=== PATIENT | female | born 1955 | race Caucasian/White ===

== ENCOUNTER → 2016-08-04 | Outpatient (CLI) | payer BC ==
[~2016-08-04] MED LIST: CALC-354 PO; CALCTAB5 PO; CARB25TA16 PO; CHOL100010 PO; FSM70 PO; GABA-774 PO; HORIZANT PO; LVQ500 PO; SYN88 PO; TRAZPOW
--- NOTE | 2016-08-05 08:02 | MAMMOGRAPHY REPORT ---
BILATERAL DIGITAL SCREENING MAMMOGRAM TOMOSYNTHESIS WITH CAD: 08/04/2016 CLINICAL HISTORY: Asymptomatic. Personal history of breast cancer. TECHNIQUE: Breast tomosynthesis in addition to standard 2D mammography was performed. Current study was also evaluated with a Computer Aided Detection (CAD) system. COMPARISON: Comparison is made to exams dated: 07/31/2015 mammogram, 07/26/2014 mammogram, 06/07/2013 yung mogram, 11/29/2012 mammogram, 05/21/2012 ultrasound, and 05/21/2012 mammogram - [facility] nter. BREAST COMPOSITION: The tissue of both breasts is heterogeneously dense, which may obscure small mas ses. FINDINGS: There are stable postsurgical changes in the right breast, with evidence of prior lumpectom y in the upper inner posterior aspect of the breast. There are a few benign round calcifications in the right breast. Diffuse bilateral punctate microcalcifications in mild vascular calcification. No new suspicious mass, architectural distortion or cluster of microcalcifications is seen. IMPRESSION: ACR BI-RADS CATEGORY 1: NEGATIVE There is no mammographic evidence of malignancy. A 1 year screening mammogram is recommended. The pa tient will receive written notification of the results. Approximately 10% of breast cancers are not detected with mammography. A negative mammographic report should not delay biopsy if a clinically suggestive mass is present. Fabienne Prescott M.D. ay/:08/04/2016 16:49:05 Language Therapist: Elana Jensen, [facility] letter sent: Normal 1/2 BI-RADS Code: ACR BI-RADS Category 1: Negative
== END ==
LOC: C.MAMM 07:25
PROVIDERS: ATTEND Nurse Practitioner
DX: Z12.31 Encounter for screening mammogram for malignant neoplasm of breast (principal)

== ENCOUNTER 2016-12-03 15:22 | Inpatient (IN) | payer BC ==
[~2016-12-03] VITALS: Ht 167.6 cm; Wt 61.6 kg
[~2016-12-03 15:22] MED LIST changes: -CALC-354 PO; -GABA-774 PO; -HORIZANT PO; -LVQ500 PO
[2016-12-03] MEDS ORDERED: KETOROLAC TROMETHAMINE 30 MG/ML VIAL IV STA (15:44)
[2016-12-03] MEDS ORDERED: ACETAMINOPHEN 500 MG TAB PO STA (15:44)
[2016-12-03] MEDS ORDERED: LEVAQUIN 750MG / 150ML D5W IV STA (15:44)
[2016-12-03] MEDS ORDERED: HORIZANT PO (15:45)
[2016-12-03] MEDS ORDERED: CALC-354 PO (15:45)
[2016-12-03] MEDS ORDERED: SYN88 PO (15:45)
--- NOTE | 2016-12-03 16:02 | EMERGENCY ROOM VISIT NOTE ---
History Report prepared by Marcela: Erin Feliciano Under the Supervision of: Dr. Austin Cox M.D. First contact with patient: 15:40 Chief Complaint: ILLNESS Stated Complaint: I History of Present Illness The patient is a 60 year old female who presents to the Emergency Room with complaints of a constant illness for the past 5 days. The patient developed a fever and chills 5 days ago. Yesterday afternoon she started feeling better, but her fever and chills returned today. This morning she went to her PCP's office for evaluation. She had a fever at that time. Her PCP sent her to same- day surgery at the hospital for fluids. The patient received 2L of fluids and still had a fever and did not feel better, so she was sent to the ED for further evaluation. The patient reports a slight cough. She was feeling dizzy two days ago and fell because of this dizziness. She did not lose consciousness. She hit her lower back and her head at that time. She has been having some lower back pain since this episode. She has seen her PCP for these symptoms. The patient denies headache, sore throat, rhinorrhea, nausea, vomiting , diarrhea, abdominal pain, and urinary symptoms. She denies any sick contacts or recent tick bites. She also denies any recent changes to her medications. She is not currently under treatment for any medical problems. The patient reports some generalized soreness which she attributes to laying around for the past few days. Source of History: patient Onset: 5 days ago Position: other (global) Quality: other (illness) Timing: constant Associated Symptoms: + fevers, + chills, + back pain, No LOC, No sorethroat , No nausea, No vomiting, No abdominal pain, No diarrhea, No urinary symptoms Review of Systems See HPI for pertinent positives & negatives. A total of 10 systems reviewed and were otherwise negative. Past Medical & Surgical Medical Problems: (1) Carcinoma of breast (2) Hypothyroidism, unspecified (3) Lumbago Family History Diabetes mellitus Social History Smoking Status: Former Smoker Marital Status: Housing Status: lives with significant other Current/Historical Medications Scheduled Calcium Carbonate-Cholecalcife (Caltrate 600+D), 1 TAB PO DAILY Levodopa/Carbidopa (Sinemet Cr 25MG/100MG), 1 TAB PO DAILY Levothyroxine Sodium (Synthroid), 88 MCG PO DAILY [horizant ER], 600 MG PO DAILY@1700 Allergies Coded Allergies: Penicillins (Verified Allergy, Unknown, 12/03/16) Physical Exam Vital Signs Date Time Temp Pulse Resp B/P (MAP) Pulse Ox O2 Delivery O2 Flow Rate FiO2 12/03/16 17:02 37.6 87 18 80/39 96 Room Air 12/03/16 15:35 39.6 83 18 112/57 99 Room Air Physical Exam GENERAL: Patient is in no acute distress. HEENT: No acute trauma, normocephalic atraumatic, mucous membranes dry, no nasal congestion, no scleral icterus. No throat erythema or exudate. NECK: No stridor, no adenopathy, no meningismus, trachea is midline. LUNGS: Clear to auscultation bilaterally, no wheeze, no rhonchi, breath sounds equal. HEART: Without murmurs gallops or rubs, regular rate and rhythm. ABDOMEN: Soft, nontender, bowel sounds positive, no hernias, no peritonitis. EXTREMITIES: No cyanosis or edema, full range of motion of all the joints without pain or difficulty, no signs for acute trauma. NEUROLOGIC: Oriented x 3, no acute motor or sensory deficits, no focal weakness. SKIN: No rash, no jaundice, no diaphoresis. Medical Decision & Procedures ER Provider Diagnostic Interpretation: Radiology results as stated below per my review and radiologist interpretation: CHEST ONE VIEW PORTABLE CLINICAL HISTORY: Sepsis COMPARISON STUDY: No previous studies for comparison. FINDINGS: The cardiac and mediastinal contours are normal. There is no evidence of focal pulmonary consolidation. There is no evidence of failure. No pleural effusions are visualized.[ IMPRESSION: No active disease in the chest. Electronically signed by: Doug Rey M.D. 12/03/2016 4:05 PM Dictated Date/Time: 12/03/2016 4:05 PM Laboratory Results 12/03/16 16:00 Red Blood Count 4.18, Mean Corpuscular Volume 87.1, Mean Corpuscular Hemoglobin 30.1, Mean Corpuscular Hemoglobin Concent 34.6, Mean Platelet Volume 10.2, Neutrophils (%) (Auto) 81.3, Lymphocytes (%) (Auto) 9.8, Monocytes (%) (Auto) 8.1, Eosinophils (%) (Auto) 0.0, Basophils (%) (Auto) 0.1, Neutrophils # (Auto) 5.91, Lymphocytes # (Auto) 0.71, Monocytes # (Auto) 0.59, Eosinophils # (Auto) 0.00, Basophils # (Auto) 0.01 12/03/16 16:00 Test 12/03/16 16:00 12/03/16 16:16 12/03/16 17:46 White Blood Count 7.27 K/uL (4.8-10.8) Red Blood Count 4.18 M/uL (4.2-5.4) Hemoglobin 12.6 g/dL (12.0-16.0) Hematocrit 36.4 % (37-47) Mean Corpuscular Volume 87.1 fL (80-100) Mean Corpuscular Hemoglobin 30.1 pg (25-34) Mean Corpuscular Hemoglobin Concent 34.6 g/dl (32-36) Platelet Count 152 K/uL (130-400) Mean Platelet Volume 10.2 fL (7.4-10.4) Neutrophils (%) (Auto) 81.3 % Lymphocytes (%) (Auto) 9.8 % Monocytes (%) (Auto) 8.1 % Eosinophils (%) (Auto) 0.0 % Basophils (%) (Auto) 0.1 % Neutrophils # (Auto) 5.91 K/uL (1.4-6.5) Lymphocytes # (Auto) 0.71 K/uL (1.2-3.4) Monocytes # (Auto) 0.59 K/uL (0.11-0.59) Eosinophils # (Auto) 0.00 K/uL (0-0.5) Basophils # (Auto) 0.01 K/uL (0-0.2) RDW Standard Deviation 41.1 fL (36.4-46.3) RDW Coefficient of Variation 12.7 % (11.5-14.5) Immature Granulocyte % (Auto) 0.7 % Immature Granulocyte # (Auto) 0.05 K/uL (0.00-0.02) Prothrombin Time 10.6 SECONDS (9.0-12.0) Prothromb Time International Ratio 1.0 (0.9-1.1) Activated Partial Thromboplast Time 27.9 SECONDS (21.0-31.0) Partial Thromboplastin Ratio 1.1 Anion Gap 9.0 mmol/L (3-11) Est Creatinine Clear Calc Drug Dose 61.5 ml/min Estimated GFR () 78.5 Estimated GFR (Non- 67.7 BUN/Creatinine Ratio 17.7 (10-20) Calcium Level 7.7 mg/dl (8.5-10.1) Magnesium Level 2.3 mg/dl (1.8-2.4) Total Bilirubin 0.5 mg/dl (0.2-1) Aspartate Amino Transf (AST/SGOT) 39 U/L (15-37) Alanine Aminotransferase (ALT/SGPT) 45 U/L (12-78) Alkaline Phosphatase 77 U/L (45-117) Total Protein 6.7 gm/dl (6.4-8.2) Albumin 2.6 gm/dl (3.4-5.0) Globulin 4.1 gm/dl (2.5-4.0) Albumin/Globulin Ratio 0.6 (0.9-2) Thyroid Stimulating Hormone (TSH) 0.184 uIu/ml (0.300-4.500) Lyme Disease IgG Antibody NEG (NEG) Lyme Disease IgM Antibody NEG (NEG) Bedside Lactic Acid Venous 1.73 mmol/L (0.90-1.70) Laboratory results reviewed by me. Medications Administered Medications (Trade) Dose Ordered Sig/Cherelle Route Start Time Stop Time Status Last Admin Dose Admin Acetaminophen (Tylenol Tab) 1,000 mg NOW STAT PO 12/03/16 15:44 12/03/16 15:48 DC 12/03/16 15:59 1,000 MG Ketorolac Tromethamine (Toradol Inj) 30 mg NOW STAT IV 12/03/16 15:44 12/03/16 15:48 DC 12/03/16 16:36 30 MG Levofloxacin (Levaquin / D5W) 750 mg NOW STAT IV 12/03/16 15:44 12/03/16 15:48 DC 12/03/16 16:36 750 MG Sodium Chloride 500 ml @ 999 mls/hr Q31M STAT IV 12/03/16 16:42 12/03/16 17:12 DC 12/03/16 16:58 999 MLS/HR Potassium Chloride (Klor-Con M10) 40 meq NOW STAT PO 12/03/16 16:47 12/03/16 16:48 DC 12/03/16 17:01 40 MEQ ED Course 1540: The patient was evaluated in room C1B. A complete history and physical exam was performed. 1544: Levofloxacin 750 mg IV, Toradol 30 mg IV, Tylenol 1000 mg PO 1642: NSS 500 ml @ 999 mls/hr IV 1647: Klor-Con M10 40 meq PO Medical Decision Differential diagnoses includes UTI, sepsis, bacteremia, dehydration, electrolyte imbalance, Lyme disease, pneumonia, viral illness. There is no leukocytosis or concerning anemia. No kidney failure. Potassium slightly low. No evidence for hepatitis. Thyroid testing suggests the use of thyroid medication. Urine dip was equivocal for infection, urinalysis is pending. Blood cultures are pending. Lactic acid level was not significantly elevated making severe sepsis less likely. Chest film did not show pneumonia. Lyme disease testing was negative. On exam, there was no evidence for cellulitis. The patient received IV saline, she was given IV Toradol and oral Tylenol. She was given IV Levaquin as empiric antibiotic coverage. The patient was given oral potassium. The patient presents with a fever, she has had body aching. She did have a fall at home secondary to dizziness. Here, her blood pressure is somewhat low. Given the fever, given the dehydration, given the lack of improvement with treatment, given the hypotension, admission/observation was felt warranted. The cause for the fever is unclear. Certainly, viral illness is possible, bacteremia is possible. I did speak with case management, I talked with the patient. The on-call hospitalist was consulted. Medication Reconcilliation Current Medication List: was personally reviewed by me Blood Pressure Screening Patient's blood pressure: Low blood pressure Impression Primary Impression: Fever Additional Impressions: Dehydration Hypotension Scribe Attestation The scribe's documentation has been prepared under my direction and personally reviewed by me in its entirety. I confirm that the note above accurately reflects all work, treatment, procedures, and medical decision making performed by me. Departure Information Dispostion Being Evaluated By Hospitalist Referrals Princess [email or web address] (PCP) Patient Instructions My [facility] Problem Qualifiers
--- NOTE | 2016-12-03 16:07 | DIAGNOSTIC IMAGING REPORT ---
CHEST ONE VIEW PORTABLE CLINICAL HISTORY: Sepsis COMPARISON STUDY: No previous studies for comparison. FINDINGS: The cardiac and mediastinal contours are normal. There is no evidence of focal pulmonary consolidation. There is no evidence of failure. No pleural effusions are visualized.[ IMPRESSION: No active disease in the chest. Electronically signed by: Doug Rey M.D. 12/03/2016 4:05 PM Dictated Date/Time: 12/03/2016 4:05 PM
[2016-12-03 16:23] LABS: BASO % 0.1 %; BASO ABS # 0.01 K/uL (0-0.2); COMPLETE YES; HEMATOCRIT 36.4 % (37-47); IG% 0.7 %; LYMPH % 9.8 %; LYMPH ABS # 0.71 K/uL (1.2-3.4); MEAN CELL VOLUME 87.1 fL (80-100); MEAN CORPUSCULAR HEMOGLOBIN 30.1 pg (25-34); MEAN CORPUSCULAR HGB CONC 34.6 g/dl (32-36); MEAN PLATELET VOLUME 10.2 fL (7.4-10.4); MONO % 8.1 %; NEUT % 81.3 %; PLATELET COUNT 152 K/uL (130-400); RED BLOOD COUNT 4.18 M/uL (4.2-5.4); WHITE BLOOD COUNT 7.27 K/uL (4.8-10.8)
[2016-12-03 16:39] LABS: PARTIAL THROMBOPLASTIN RATIO 1.1; PROTHROMBIN TIME (PATIENT) 10.6 SECONDS (9.0-12.0)
[2016-12-03] MEDS ORDERED: SODIUM CHLORIDE 0.9% 500ML 500 ML IV STA (16:42)
[2016-12-03 16:43] LABS: BUN/CREATININE RATIO 17.7 (10-20); CALCIUM 7.7 mg/dl (8.5-10.1); CREATININE 0.93 mg/dl (0.60-1.20); MAGNESIUM 2.3 mg/dl (1.8-2.4)
[2016-12-03] MEDS ORDERED: POTASSIUM CHLORIDE 10 MEQ TABCR PO STA (16:47)
[2016-12-03 16:54] LABS: ALB/GLOB RATIO 0.6 (0.9-2); THYROID STIMULATING HORMONE 0.184 uIu/ml (0.300-4.500)
[2016-12-03 18:12] LABS: URINE APPEARANCE CLEAR (CLEAR); URINE BILIRUBIN NEG (NEG); URINE COLOR YELLOW; URINE EPITHELIAL CELL AUTO 20-30 /lpf (0-5); URINE NITRITE NEG (NEG); URINE SPECIFIC GRAVITY 1.017 (1.000-1.030); UROBILINOGEN NEG (NEG); ZZUR CULT IF INDIC CLEAN CATCH YES
[2016-12-03 18:13] LABS: LYME DISEASE AB IGG NEG (NEG); LYME DISEASE AB IGM NEG (NEG)
[2016-12-03] MEDS ORDERED: ONDANSETRON INJ 2 MG/ML 2 ML VIAL IV PRN (18:45)
[2016-12-03] MEDS ORDERED: ALUMINUM/MAGNESIUM/SIMETH (MAALOX MAX) 30 ML UDC PO PRN (18:45)
[2016-12-03] MEDS ORDERED: MAGNESIUM HYDROXIDE SUSP 30 ML UDC PO PRN (18:45)
[2016-12-03 18:51] LABS: MANUAL MICROSCOPIC REQUIRED? NO; REVIEW REQ? NO
--- NOTE | 2016-12-03 18:58 | History and Physical ---
History & Physical Date & Time of Service: Dec 03, 2016 at 18:41 Chief Complaint: I Primary Care Physician: Susan. Herzog CRNP History of Present Illness Source: patient, family ( at bedside), clinic records, hospital records Patient is a pleasant 60 y/o female, with PMHx of R breast cancer s/p lumpectomy , RLS, and hypothyroidism, who presented to the ED because of illness since 11/28. Patient admits to body aches, decreased appetite, and a headache. She went to her PCP today who sent her to same day surgery here at the hospital for IVF due to dehydration. While here, she started to develop fever/chills and came to the ED. She notes her stomach is a bit upset, but attributes it to the potassium supplement given in ED. She has not taken any of her medications since Thursday due to feeling ill. She complains of mild lumbar pain secondary to a fall occurring 2 days ago due to dizziness. She admits to a non productive cough. Per , he was ill a few days ago, but has recovered. Patient denies any sweats, lightheadedness, vision changes, CP, palpitations, edema, SOB , wheezing, nausea, vomiting, diarrhea, urinary symptoms, melena, numbness/ tingling, weakness, anxiety/depression, active bleeding, or new skin discoloration/changes. Past Medical/Surgical History Medical Problems: R breast cancer s/p lumpectomy RLS hypothyroidism Family History Diabetes mellitus Social History Smoking Status: Former Smoker Smokeless Tobacco Use: No Marital Status: Housing status: lives with family Immunizations History of Influenza Vaccine: Yes Influenza Vaccine Date: Dec 03, 2011 History of Tetanus Vaccine?: Yes Tetanus Immunization Date: Dec 24, 2011 History of Pneumococcal: No History of Hepatitis B Vaccine: No Multi-Drug Resistant Organisms History of MDRO: No Allergies Coded Allergies: Penicillins (Verified Allergy, Mild, RASH, 12/04/16) Home Medications Scheduled Calcium Carbonate-Cholecalcife (Caltrate 600+D), 1 TAB PO DAILY Gabapentin Enacarbil (Horizant), 600 MG PO DAILY@1700 Levodopa/Carbidopa (Sinemet Cr 25MG/100MG), 1 TAB PO HS Levothyroxine Sodium (Synthroid), 88 MCG PO DAILY Physical Exam Vital Signs Date Time Temp Pulse Resp B/P (MAP) Pulse Ox O2 Delivery O2 Flow Rate FiO2 12/03/16 17:02 37.6 87 18 80/39 96 Room Air 12/03/16 15:35 39.6 83 18 112/57 99 Room Air General Appearance: no apparent distress Head: normocephalic, atraumatic Eyes: normal inspection, PERRL ENT: hearing grossly normal Neck: supple Respiratory/Chest: lungs clear, normal breath sounds, no respiratory distress, no accessory muscle use Cardiovascular: regular rate, rhythm Abdomen/GI: normal bowel sounds, non tender, soft Back: normal inspection Extremities/Musculoskelatal: no calf tenderness, no pedal edema Neurologic/Psych: alert, normal mood/affect, oriented x 3 Skin: normal color, warm/dry, no rash Diagnostics Laboratory Results Results Past 24 Hours Test 12/03/16 16:00 12/03/16 16:16 12/03/16 17:46 Range/Units White Blood Count 7.27 4.8-10.8 K/uL Red Blood Count 4.18 4.2-5.4 M/uL Hemoglobin 12.6 12.0-16.0 g/dL Hematocrit 36.4 37-47 % Mean Corpuscular Volume 87.1 80-100 fL Mean Corpuscular Hemoglobin 30.1 25-34 pg Mean Corpuscular Hemoglobin Concent 34.6 32-36 g/dl Platelet Count 152 130-400 K/uL Mean Platelet Volume 10.2 7.4-10.4 fL Neutrophils (%) (Auto) 81.3 % Lymphocytes (%) (Auto) 9.8 % Monocytes (%) (Auto) 8.1 % Eosinophils (%) (Auto) 0.0 % Basophils (%) (Auto) 0.1 % Neutrophils # (Auto) 5.91 1.4-6.5 K/uL Lymphocytes # (Auto) 0.71 1.2-3.4 K/uL Monocytes # (Auto) 0.59 0.11-0.59 K/uL Eosinophils # (Auto) 0.00 0-0.5 K/uL Basophils # (Auto) 0.01 0-0.2 K/uL RDW Standard Deviation 41.1 36.4-46.3 fL RDW Coefficient of Variation 12.7 11.5-14.5 % Immature Granulocyte % (Auto) 0.7 % Immature Granulocyte # (Auto) 0.05 0.00-0.02 K/uL Prothrombin Time 10.6 9.0-12.0 SECONDS Prothromb Time International Ratio 1.0 0.9-1.1 Activated Partial Thromboplast Time 27.9 21.0-31.0 SECONDS Partial Thromboplastin Ratio 1.1 Sodium Level 135 136-145 mmol/L Potassium Level 3.0 3.5-5.1 mmol/L Chloride Level 100 98-107 mmol/L Carbon Dioxide Level 26 21-32 mmol/L Anion Gap 9.0 3-11 mmol/L Blood Urea Nitrogen 16 7-18 mg/dl Creatinine 0.93 0.60-1.20 mg/dl Est Creatinine Clear Calc Drug Dose 61.5 ml/min Estimated GFR () 78.5 Estimated GFR (Non- 67.7 BUN/Creatinine Ratio 17.7 10-20 Random Glucose 93 70-99 mg/dl Calcium Level 7.7 8.5-10.1 mg/dl Magnesium Level 2.3 1.8-2.4 mg/dl Total Bilirubin 0.5 0.2-1 mg/dl Aspartate Amino Transf (AST/SGOT) 39 15-37 U/L Alanine Aminotransferase (ALT/SGPT) 45 12-78 U/L Alkaline Phosphatase 77 45-117 U/L Total Protein 6.7 6.4-8.2 gm/dl Albumin 2.6 3.4-5.0 gm/dl Globulin 4.1 2.5-4.0 gm/dl Albumin/Globulin Ratio 0.6 0.9-2 Thyroid Stimulating Hormone (TSH) 0.184 0.300-4.500 uIu/ml Free Thyroxine 0.90 0.80-1.60 ng/dl Lyme Disease IgG Antibody NEG NEG Lyme Disease IgM Antibody NEG NEG Bedside Lactic Acid Venous 1.73 0.90-1.70 mmol/L Microbiology Results 12/03/16 Blood Culture, Received Pending 12/03/16 Blood Culture, Received Pending Diagnostic Radiology [~ rep ct add3]] CHEST ONE VIEW PORTABLE CLINICAL HISTORY: Sepsis COMPARISON STUDY: No previous studies for comparison. FINDINGS: The cardiac and mediastinal contours are normal. There is no evidence of focal pulmonary consolidation. There is no evidence of failure. No pleural effusions are visualized.[ IMPRESSION: No active disease in the chest. Electronically signed by: Doug Rey M.D. 12/03/2016 4:05 PM Dictated Date/Time: 12/03/2016 4:05 PM The status of this report is Signed. Draft = Not yet reviewed or approved by Radiologist. Signed = Reviewed and approved by Radiologist. Impression Assessment and Plan Patient is a pleasant 60 y/o female, with PMHx of R breast cancer s/p lumpectomy , RLS, and hypothyroidism, who presented to the ED because of illness since 11/28. Illness w/ hypotension and fever, ?secondary to viral illness vs infectious: - Admit to med/surg - Hypotension: Received IV bolus x2, continue IVF @ 125 ml/hr + IV Albumin x1 dose - Tylenol PRN for pain or fever - IV Levaquin given in ED; will not continue antibiotics at this time- no clear s/s on infection - UA/UCx pending - BCx pending - Influenza swab pending - Lyme screen negative - CXR- negative for acute findings - Mildly elevated lactic acid- will repeat q6 hrs - Follow CBC and PRP Hypokalemia: Replaced w/ 40 mEq KCL supplement in ED; IVF + KCL Hypothyroidism: Continue Synthroid RLS: Continue Sinemet and Horizant GI prophylaxis: Protonix DVT prophylaxis: Lovenox SQ daily Code Status: LEVEL I, FULL Dispo: From home, lives w/ - no discharge needs anticipated Attending Addendum: I have physically seen and examined this patient, have directed the physician assistants medical activities, and agree with the H&P as noted above with the following exceptions as noted. The patient is awake, alert and oriented 3, well-developed and well-nourished , normocephalic and atraumatic, lying in bed and in no acute distress. HEENT--PERRL, EOMI, mucous membranes and oropharynx dry. Neck--supple, no JVD or bruits, thyroid normal, trachea midline, no adenopathy. Heart--normal S1 and S2, no extra beats, no murmurs, rubs or gallops. Lungs--clear bilaterally with good air movement, no respiratory distress, no accessory muscle use. Abdomen--normal bowel sounds and soft, nontender and nondistended, no hernias or masses, no organomegaly. Extremities--no cyanosis, clubbing or edema. There are good distal pulses b/l. Dermatologic--normal skin turgor, normal color, warm and dry, no abnormal lymph nodes, no rash. Neurologic--cranial nerves II through XII grossly intact. Rheumatologic--normal range of motion, nontender, muscles and joints. Psychiatric--normal affect. Assessment and Plan: Febrile illness/hypotension responded to IV fluids-- Continue IV fluids at 125 ML's per hour. Albumin 25 g IV 1 Levaquin IV given in the ED. Symptoms more suggestive of a viral process but will follow urinalysis, urine culture and blood cultures. Hypokalemia-- Replaced both orally and IV. Hypothyroidism-- Continue Synthroid. RLS/Parkinson-- Continue Sinemet and horizant GERD-- Continue Protonix. Level of Care Med/Surg Advanced Directives Existing Advance Directive: No Existing Living Will: No Existing Power of Multi Operation Forming Machine Setter: No Resuscitation Status FULL RESUSCITATION VTE Prophylaxis VTE Risk Assessment Done? Y/N: Yes Risk Level: Moderate Given or contraindicated: Enoxaparin (Lovenox)SQ, T.E.D. Stockings, SCD's Social Service Consult None Apply
[2016-12-03] MEDS ORDERED: ALBUMIN HUMAN 25% 12.5 GM/50 ML VIAL IV ONE ×2 (19:00→21:15)
[2016-12-03] MEDS ORDERED: POLYETHYLENE (MIRALAX) 17 GM PACK PO PRN (19:15)
[2016-12-03] MEDS ORDERED: GABA-774 PO (19:18)
[2016-12-03 20:33] VITALS: BP 94/58; PULSE 64; TEMP 36.5; O2SAT 98; Ht 167.6 cm; Wt 61.6 kg
[2016-12-03] MEDS: NSS + 20MEQ KCL 1000ML 1,000 ML IV SCH (20:59)
[2016-12-03 21:31] VITALS: BP 89/53; PULSE 59; TEMP 36.6; O2SAT 98
[2016-12-03] MEDS: ENOXAPARIN 40 MG/0.4 ML SYR SQ SCH (22:00)
[2016-12-03 23:28] VITALS: BP 91/51; PULSE 60; O2SAT 97
[2016-12-04] MEDS ORDERED: NURSING VERBAL MED ORDER ONE ×3 (00:45→10:30)
[2016-12-04 00:46] VITALS: BP 84/55; PULSE 93; TEMP 36.7; O2SAT 95
[2016-12-04] MEDS ORDERED: ZOLPIDEM TARTRATE 5 MG TAB PO ONE (01:30)
[2016-12-04] MEDS: NSS + 20MEQ KCL 1000ML 1,000 ML IV SCH ×3 (05:41→21:27)
[2016-12-04] MEDS: LEVOTHYROXINE 88 MCG TAB PO SCH (06:22)
[2016-12-04 06:47] LABS: HEMATOCRIT 30.8 % (37-47); MEAN CORPUSCULAR HEMOGLOBIN 29.6 pg (25-34); MEAN CORPUSCULAR HGB CONC 34.4 g/dl (32-36); MEAN PLATELET VOLUME 9.4 fL (7.4-10.4); PLATELET COUNT 149 K/uL (130-400); RED BLOOD COUNT 3.58 M/uL (4.2-5.4); WHITE BLOOD COUNT 5.81 K/uL (4.8-10.8)
[2016-12-04 07:23] LABS: CREATININE 0.8 mg/dl (0.60-1.20)
[2016-12-04 07:24] LABS: BUN/CREATININE RATIO 12.7 (10-20); CALCIUM 7.4 mg/dl (8.5-10.1); POTASSIUM 3.7 mmol/L (3.5-5.1)
[2016-12-04] MEDS: ACETAMINOPHEN 325 MG TAB PO PRN ×2 (07:37→23:24)
[2016-12-04 07:50] VITALS: BP 95/59; PULSE 91; TEMP 39.1; O2SAT 94
[2016-12-04] MEDS ORDERED: CARBIDOPA/LEVODOPA 25/100MG EXT REL TAB PO SCH (08:00)
[2016-12-04] MEDS ORDERED: PIPERACILL/TAZOBAC CONSULT ACTIVE PRN (08:30)
[2016-12-04] MEDS ORDERED: VANCOMYCIN CONSULT ACTIVE PRN (08:30)
[2016-12-04] MEDS ORDERED: PIPERACILL/TAZOBAC IV 3.375 GM in DEXTROSE 5% 100ML IV ONE (09:00)
--- NOTE | 2016-12-04 09:09 | Pharmacy Progress Note ---
Pharmacy Abx Dose Short Note Date of Service Dec 04, 2016. Assessment & Plan Pt is a 60yo F p/w fever & concurrent hypotension. Spoke w/ nursing re: PCN allergy. Per patient it was a mild rash on her feet. There is little concern for anaphylaxis or an IgE mediated response. Pt's renal fxn looks to be close to her baseline: t1/2=11hrs, ke=0.0642, Vd=0.7. No leukocytosis. Fever of 39.1. qSOFA: Sys BP is <100mmHg, No AMS, Normopneic. Pt doesnt have a h/o MDRO. BCx2, UC, and MRSA nasal swab all pending. Vanco: * Set to receive Vanco 1500mg(24mg/kg) x1 to achieve a peak of about 35mcg/mL * Then Vanco 1000mg(16mg/kg) q12 starting at 1600 on 12/04/16 * Goal trough until c/s's result is 15-20mcg/mL * Trough ordered for 12/06/16 @0330 prior to the 4th maintenance dose Zosyn: * Will receive Zosyn 3.375g x1 30min infsn * Then EI Zosyn 3.375g q8, appropriate for eCrCl>20cc/min and clinical status Pharmacy will continue to follow and will adjust dose/frequency as necessary. Thank you.
[2016-12-04] MEDS: PANTOprazole SOD 40 MG TAB PO SCH (09:12)
[2016-12-04] MEDS ORDERED: VANCOMYCIN INJ 1,500 MG in SODIUM CHLORIDE 0.9% 500ML 500 ML IV ONE (09:30)
--- NOTE | 2016-12-04 10:09 | Progress Note ---
Subjective Date of Service: Dec 04, 2016. Subjective Pt evaluation today including: conversation w/ patient, conversation w/ family , physical exam, chart review, lab review, review of studies, review of inpatient medication list Jass spiking fever and is morning 39.1, complaining muscle ache, otherwise no any complaint, blood pressure better, no more dizziness Problem List Medical Problems: (1) Dehydration Status: Acute (2) Fever Status: Acute (3) Hypotension Status: Acute Review of Systems Constitutional: No fever, No chills, No sweats, No weight loss, No weakness, No fatigue, No problem reported Eyes: No worsening of vision, No eye pain, No redness, No discharge, No diplopia ENT: No hearing loss, No unusual epistaxis, No nasal symptoms, No sore throat, No tinnitus, No dental problems, No trouble swallowing Respiratory: No cough, No sputum, No wheezing, No shortness of breath, No dyspnea on exertion, No dyspnea at rest, No hemoptysis Cardiac: No chest pain, No orthopnea, No PND, No edema, No claudication, No palpitations Abdomen: No pain, No nausea, No vomiting, No diarrhea, No constipation Musculoskeletal: No joint pain, No muscle pain, No swelling, No calf pain Female : No dysuria, No urinary frequency, No hematuria, No incontinence, No abnormal vaginal bleeding, No vaginal discharge Neurologic: No memory loss, No paralysis, No weakness, No numbness/tingling, No vertigo, No balance problems Psychiatric: No depression symptoms, No anhedonism, No anxiety, No insomnia, No substance abuse Heme: No abnormal bleeding/bruising, No clotting problems, No swollen lymph nodes, No night sweats Endo: No fatigue, No excessive thirst, No excessive urination Skin: No rash, No itch, No new/changing skin lesions, No color change, No bleeding Objective Vital Signs Date Time Temp Pulse Resp B/P (MAP) Pulse Ox O2 Delivery O2 Flow Rate FiO2 12/04/16 07:50 39.1 91 18 95/59 (71) 94 Room Air 12/04/16 00:46 36.7 93 18 84/55 (65) 95 Room Air 12/03/16 23:59 Room Air 12/03/16 23:28 60 91/51 (64) 97 12/03/16 21:31 36.6 59 18 89/53 (65) 98 Room Air 12/03/16 20:33 36.5 64 16 94/58 98 Room Air 12/03/16 20:00 66 18 81/42 98 12/03/16 18:58 65 18 78/40 98 Room Air 12/03/16 17:02 37.6 87 18 80/39 96 Room Air 12/03/16 15:35 39.6 83 18 112/57 99 Room Air Physical Exam General Appearance: WD/WN, no apparent distress, + thin Eyes: normal inspection, PERRL, EOMI, sclerae normal ENT: normal ENT inspection, hearing grossly normal, pharynx normal Neck: supple, no adenopathy, thyroid normal, no JVD, no carotid bruits, trachea midline Respiratory/Chest: chest non-tender, lungs clear, normal breath sounds, no respiratory distress, no accessory muscle use Cardiovascular: regular rate, rhythm, no edema, no gallop, no JVD, no murmur, + friction rub (suspicious mild) Abdomen: normal bowel sounds, non tender, soft, no organomegaly, no pulsatile mass Extremities: normal range of motion, non-tender, normal inspection, no pedal edema, no calf tenderness, normal capillary refill, pelvis stable 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, no motor/sensory deficits, alert, normal mood/affect, oriented x 3 Skin: normal color, warm/dry, no rash Lymphatic: no adenopathy Laboratory Results Last 24 Hours Test 12/03/16 16:00 12/03/16 16:16 12/03/16 17:46 12/03/16 20:00 White Blood Count 7.27 K/uL Red Blood Count 4.18 M/uL Hemoglobin 12.6 g/dL Hematocrit 36.4 % Mean Corpuscular Volume 87.1 fL Mean Corpuscular Hemoglobin 30.1 pg Mean Corpuscular Hemoglobin Concent 34.6 g/dl Platelet Count 152 K/uL Mean Platelet Volume 10.2 fL Neutrophils (%) (Auto) 81.3 % Lymphocytes (%) (Auto) 9.8 % Monocytes (%) (Auto) 8.1 % Eosinophils (%) (Auto) 0.0 % Basophils (%) (Auto) 0.1 % Neutrophils # (Auto) 5.91 K/uL Lymphocytes # (Auto) 0.71 K/uL Monocytes # (Auto) 0.59 K/uL Eosinophils # (Auto) 0.00 K/uL Basophils # (Auto) 0.01 K/uL RDW Standard Deviation 41.1 fL RDW Coefficient of Variation 12.7 % Immature Granulocyte % (Auto) 0.7 % Immature Granulocyte # (Auto) 0.05 K/uL Prothrombin Time 10.6 SECONDS Prothromb Time International Ratio 1.0 Activated Partial Thromboplast Time 27.9 SECONDS Partial Thromboplastin Ratio 1.1 Sodium Level 135 mmol/L Potassium Level 3.0 mmol/L Chloride Level 100 mmol/L Carbon Dioxide Level 26 mmol/L Anion Gap 9.0 mmol/L Blood Urea Nitrogen 16 mg/dl Creatinine 0.93 mg/dl Est Creatinine Clear Calc Drug Dose 61.5 ml/min Estimated GFR () 78.5 Estimated GFR (Non- 67.7 BUN/Creatinine Ratio 17.7 Random Glucose 93 mg/dl Calcium Level 7.7 mg/dl Magnesium Level 2.3 mg/dl Total Bilirubin 0.5 mg/dl Aspartate Amino Transf (AST/SGOT) 39 U/L Alanine Aminotransferase (ALT/SGPT) 45 U/L Alkaline Phosphatase 77 U/L Total Protein 6.7 gm/dl Albumin 2.6 gm/dl Globulin 4.1 gm/dl Albumin/Globulin Ratio 0.6 Thyroid Stimulating Hormone (TSH) 0.184 uIu/ml Free Thyroxine 0.90 ng/dl Lyme Disease IgG Antibody NEG Lyme Disease IgM Antibody NEG Bedside Lactic Acid Venous 1.73 mmol/L Urine Color YELLOW Urine Appearance CLEAR Urine pH 6.0 Urine Specific [place] 1.017 Urine Protein NEG Urine Glucose (UA) NEG Urine Ketones NEG Urine Occult Blood 1+ Urine Nitrite NEG Urine Bilirubin NEG Urine Urobilinogen NEG Urine Leukocyte Esterase MODERATE Urine WBC (Auto) 10-30 /hpf Urine RBC (Auto) 0-4 /hpf Urine Hyaline Casts (Auto) 0 /lpf Urine Epithelial Cells (Auto) 20-30 /lpf Urine Bacteria (Auto) NEG Influenza Type A Antigen Neg for Influ A Influenza Type B Antigen Neg for Influ B Test 12/03/16 22:13 12/04/16 06:26 12/04/16 07:58 Lactic Acid Level 1.2 mmol/L White Blood Count 5.81 K/uL Red Blood Count 3.58 M/uL Hemoglobin 10.6 g/dL Hematocrit 30.8 % Mean Corpuscular Volume 86.0 fL Mean Corpuscular Hemoglobin 29.6 pg Mean Corpuscular Hemoglobin Concent 34.4 g/dl RDW Standard Deviation 41.0 fL RDW Coefficient of Variation 12.7 % Platelet Count 149 K/uL Mean Platelet Volume 9.4 fL Sodium Level 138 mmol/L Potassium Level 3.7 mmol/L Chloride Level 109 mmol/L Carbon Dioxide Level 21 mmol/L Anion Gap 8.0 mmol/L Blood Urea Nitrogen 10 mg/dl Creatinine 0.80 mg/dl Est Creatinine Clear Calc Drug Dose 71.7 ml/min Estimated GFR () 94.2 Estimated GFR (Non- 81.3 BUN/Creatinine Ratio 12.7 Random Glucose 91 mg/dl Calcium Level 7.4 mg/dl Erythrocyte Sedimentation Rate 31 mm/hr C-Reactive Protein 11.60 mg/dl Procalcitonin 1.37 ng/ml Assessment and Plan 60 y/o female, with PMHx of R breast cancer s/p lumpectomy, RLS, and hypothyroidism admitted for possible sepsis with fever and hypotensive Possible sepsis with fever, hypotensive, possible source of infection is UTI, Illness w/ hypotension and fever, secondary to viral illness vs infectious: After 2 L IV fluid in the emergency room, currently is continuation of IV fluid , blood pressure is stable at 97 SBP , general condition looks good, I feel she should be okay to stay in the [facility] floor Spiking fever, infectious versus virus, repeat blood culture because spiking fever, check ESR CRP and procalcitonin level suspicion mild pericardia friction , ?virus pericarditis, requests echo starting Vanco and zosyn for now because patient is possible sepsis with possible immunocompromised, she has history of breast cancer S/P lumpectomy and chemoradiation treatment years ago - Influenza swab negative - Lyme screen negative - CXR- negative for acute findings - Mildly elevated lactic acid- will repeat q6 hrs - Check total CK, cardiac enzyme and troponin, check EKG too Hypokalemia: Replaced Hypothyroidism: Continue Synthroid RLS: Continue Sinemet and Horizant The above condition stable resume home medication, GI prophylaxis: Protonix DVT prophylaxis: Lovenox SQ daily Code Status: LEVEL I, FULL Discussed with patient, and daughter about the conditions and care plan, daughter is a registered nurse working his hospital and i know her, answered all questions Continued [facility] stay due to: multiple IV medications needed Discharge planning: home, uncertain
[2016-12-04] MEDS ORDERED: LEVOFLOXACIN 750 MG TAB PO SCH (11:00)
[2016-12-04 11:08] LABS: CKMB/CK RATIO 0.7 (0-3.0)
[2016-12-04] MEDS: PIPERACILL/TAZOBAC IV 3.375 GM in DEXTROSE 5% 100ML IV SCH ×2 (13:12→21:27)
[2016-12-04 16:00] VITALS: O2SAT 94
[2016-12-04] MEDS: VANCOMYCIN INJ 1,000 MG in SODIUM CHLORIDE 0.9% 250ML 250 ML IV SCH (16:05)
[2016-12-04 16:16] VITALS: BP 93/61; PULSE 67; TEMP 36.9; O2SAT 100
[2016-12-04 16:30] VITALS: TEMP 37.1
[2016-12-04] MEDS: HORIZANT 600 MG PO SCH (16:48)
[2016-12-04] MEDS ORDERED: HORIZANT 600 MG PO SCH (17:00)
--- NOTE | 2016-12-04 17:06 | ECHOCARDIOGRAM REPORT ---
*NOTICE TO RECEIVING CONSTITUTION PARTY AGENCY This information is strictly Confidential and protected under [place] law. [place] law prohibits you from making any further disclosure of this information unless further disclosure is expressly permitted by the written consent of the person to whom it pertains or is authorized by law. A general authorization for the release of medical or other information is not sufficient for this purpose. Hospital accepts no responsibility if the information is made available to any other person, INCLUDING THE PATIENT. Interpretation Summary * Name: HEBER BRAVO Study Date: 12/04/2016 10:41 AM BP: 95/59 mmHg * Patient Location: [id number] HR: 68 * : 1955 (M/d/yyyy) Gender: Female Height: 66 in * Age: 60 yrs Ethnicity: [place] Weight: 135 lb * Ordering Physician: Raghu Plata * Referring Physician: Cass Fierro D.O. * Performed By: Fabiana Newberry RCS * * Reason For Study: SPIKING FEVER / POSSIBLE SEPSIS / VIRUS PERICARDITIS? * BSA: 1.7 m2 * Normal transthoracic echocardiogram. * -- Conclusions -- * Left ventricular systolic function is normal. * Normal diastolic function * There is mild mitral regurgitation. Procedure Details * A complete two-dimensional transthoracic echocardiogram was performed (2D, M-mode, Doppler and color flow Doppler). Left Ventricle * The left ventricle is normal in size. * There is normal left ventricular wall thickness. * Left ventricular systolic function is normal. * Ejection Fraction = 55-60%. * Normal diastolic function * The left ventricular wall motion is normal. Right Ventricle * The right ventricle is normal in size and function. Atria * The left atrial size is normal. * Right atrial size is normal. Mitral Valve * The mitral valve anatomy is normal. * There is mild mitral regurgitation. Tricuspid Valve * The tricuspid valve anatomy is normal. * There is mild tricuspid regurgitation. Aortic Valve * The aortic valve is normal in structure and function. * The aortic valve is trileaflet. * No hemodynamically significant valvular aortic stenosis. * There is no significant aortic regurgitation. Great Vessels * The aortic root is normal size. Pericardium/Pleural * There is no pericardial effusion. MMode 2D Measurements and Calculations IVSd 1.3 cm IVSs 1.2 cm LVIDd 3.7 cm LVIDs 2.5 cm LVPWd 1.1 cm LVPWs 1.1 cm IVS/LVPW 1.1 FS 33.7 % EDV(Teich) 59.6 ml ESV(Teich) 21.9 ml EF(Teich) 63.3 % EDV(cubed) 52.3 ml ESV(cubed) 15.3 ml EF(cubed) 70.8 % % IVS thick -1.94 % % LVPW thick 3.9 % LV mass(C)d 146.0 grams LV mass(C)dI 86.2 grams/m\S\2 LV mass(C)s 83.4 grams LV mass(C)sI 49.3 grams/m\S\2 SV(Teich) 37.7 ml SI(Teich) 22.3 ml/m\S\2 SV(cubed) 37.0 ml SI(cubed) 21.9 ml/m\S\2 Ao root diam 3.0 cm Ao root area 6.9 cm\S\2 LA dimension 2.5 cm LA/Ao 0.86 LVOT diam 2.0 cm LVOT area 3.2 cm\S\2 Doppler Measurements and Calculations MV E max latha 84.1 cm/sec MV A max latha 38.8 cm/sec MV E/A 2.2 MV P1/2t max latha 95.8 cm/sec MV P1/2t 61.0 msec MVA(P1/2t) 3.6 cm\S\2 MV dec slope 459.7 cm/sec\S\2 MV dec time 0.20 sec Ao V2 max 106.1 cm/sec Ao max PG 4.5 mmHg Ao max PG (full) 2.0 mmHg MONIK(V,A) 2.4 cm\S\2 MONIK(V,D) 2.4 cm\S\2 LV V1 max PG 2.5 mmHg LV V1 max 79.3 cm/sec PA V2 max 59.5 cm/sec PA max PG 1.4 mmHg TR max latha 222.2 cm/sec
[2016-12-04] MEDS: ENOXAPARIN 40 MG/0.4 ML SYR SQ SCH (21:27)
[2016-12-04] MEDS: CARBIDOPA/LEVODOPA 25/100MG EXT REL TAB PO SCH (21:27)
[2016-12-04 23:21] VITALS: BP 94/57; PULSE 90; TEMP 39.2; O2SAT 93
[2016-12-05] MEDS: VANCOMYCIN INJ 1,000 MG in SODIUM CHLORIDE 0.9% 250ML 250 ML IV SCH (03:55)
[2016-12-05] MEDS: NSS + 20MEQ KCL 1000ML 1,000 ML IV SCH (05:10)
[2016-12-05] MEDS: LEVOTHYROXINE 88 MCG TAB PO SCH (06:02)
[2016-12-05] MEDS: PIPERACILL/TAZOBAC IV 3.375 GM in DEXTROSE 5% 100ML IV SCH (06:02)
[2016-12-05 06:41] LABS: HEMATOCRIT 27.9 % (37-47); MEAN CELL VOLUME 88.3 fL (80-100); MEAN CORPUSCULAR HEMOGLOBIN 31.6 pg (25-34); MEAN CORPUSCULAR HGB CONC 35.8 g/dl (32-36); MEAN PLATELET VOLUME 9.5 fL (7.4-10.4); PLATELET COUNT 173 K/uL (130-400); RED BLOOD COUNT 3.16 M/uL (4.2-5.4); WHITE BLOOD COUNT 7.09 K/uL (4.8-10.8)
[2016-12-05 07:05] VITALS: BP 84/54; PULSE 63; TEMP 36.4; O2SAT 98
[2016-12-05 07:29] LABS: BUN/CREATININE RATIO 7.6 (10-20); CALCIUM 7.2 mg/dl (8.5-10.1); CREATININE 0.72 mg/dl (0.60-1.20); POTASSIUM 3.9 mmol/L (3.5-5.1)
[2016-12-05] MEDS: PANTOprazole SOD 40 MG TAB PO SCH (08:00)
--- NOTE | 2016-12-05 11:06 | Progress Note ---
Subjective Date of Service: Dec 05, 2016. Subjective Pt evaluation today including: conversation w/ patient, conversation w/ family , physical exam, chart review, lab review, review of studies, review of inpatient medication list Still spiking fever up to 39.2, otherwise no obvious complaining, Problem List Medical Problems: (1) Dehydration Status: Acute (2) Fever Status: Acute (3) Hypotension Status: Acute Review of Systems Constitutional: + fever, No chills, No sweats, No weight loss, No weakness, No fatigue, No problem reported Eyes: No worsening of vision, No eye pain, No redness, No discharge, No diplopia ENT: No hearing loss, No unusual epistaxis, No nasal symptoms, No sore throat, No tinnitus, No dental problems, No trouble swallowing Respiratory: No cough, No sputum, No wheezing, No shortness of breath, No dyspnea on exertion, No dyspnea at rest, No hemoptysis Cardiac: No chest pain, No orthopnea, No PND, No edema, No claudication, No palpitations Abdomen: No pain, No nausea, No vomiting, No diarrhea, No constipation Musculoskeletal: No joint pain, No muscle pain, No swelling, No calf pain Female : No dysuria, No urinary frequency, No hematuria, No incontinence, No abnormal vaginal bleeding, No vaginal discharge Neurologic: No memory loss, No paralysis, No weakness, No numbness/tingling, No vertigo, No balance problems Psychiatric: No depression symptoms, No anhedonism, No anxiety, No insomnia, No substance abuse Heme: No abnormal bleeding/bruising, No clotting problems, No swollen lymph nodes, No night sweats Endo: No fatigue, No excessive thirst, No excessive urination Skin: No rash, No itch, No new/changing skin lesions, No color change, No bleeding Objective Vital Signs Date Time Temp Pulse Resp B/P (MAP) Pulse Ox O2 Delivery O2 Flow Rate FiO2 12/05/16 08:00 Room Air 12/05/16 07:05 36.4 63 18 84/54 (64) 98 Room Air 12/05/16 00:10 Room Air 12/04/16 23:21 39.2 90 18 94/57 (69) 93 Room Air 12/04/16 16:30 37.1 12/04/16 16:16 36.9 67 18 93/61 (72) 100 Room Air 12/04/16 16:00 94 Room Air Physical Exam General Appearance: WD/WN, no apparent distress, + thin, + pertinent finding ( pleasant conversational) Eyes: normal inspection, PERRL, EOMI, sclerae normal ENT: normal ENT inspection, hearing grossly normal, pharynx normal Neck: supple, no adenopathy, thyroid normal, no JVD, no carotid bruits, trachea midline Respiratory/Chest: chest non-tender, lungs clear, normal breath sounds, no respiratory distress, no accessory muscle use Cardiovascular: regular rate, rhythm, no edema, no gallop, no JVD, no murmur Abdomen: normal bowel sounds, non tender, soft, no organomegaly, no pulsatile mass Extremities: normal range of motion, non-tender, normal inspection, no pedal edema, no calf tenderness, normal capillary refill, pelvis stable 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, no motor/sensory deficits, alert, normal mood/affect, oriented x 3 Skin: normal color, warm/dry, no rash Lymphatic: no adenopathy Laboratory Results Last 24 Hours Test 12/05/16 06:04 White Blood Count 7.09 K/uL Red Blood Count 3.16 M/uL Hemoglobin 10.0 g/dL Hematocrit 27.9 % Mean Corpuscular Volume 88.3 fL Mean Corpuscular Hemoglobin 31.6 pg Mean Corpuscular Hemoglobin Concent 35.8 g/dl RDW Standard Deviation 43.8 fL RDW Coefficient of Variation 13.4 % Platelet Count 173 K/uL Mean Platelet Volume 9.5 fL Sodium Level 146 mmol/L Potassium Level 3.9 mmol/L Chloride Level 119 mmol/L Carbon Dioxide Level 20 mmol/L Anion Gap 7.0 mmol/L Blood Urea Nitrogen 6 mg/dl Creatinine 0.72 mg/dl Est Creatinine Clear Calc Drug Dose 78.7 ml/min Estimated GFR () 106.2 Estimated GFR (Non- 91.7 BUN/Creatinine Ratio 7.6 Random Glucose 86 mg/dl Calcium Level 7.2 mg/dl Assessment and Plan 60 y/o female, with PMHx of R breast cancer s/p lumpectomy, RLS, and hypothyroidism admitted for possible sepsis with fever and hypotensive Possible sepsis with fever, hypotensive, possible source of infection is UTI, continue spiking fever, possible mild lower back pain, however CVA was nontender Illness w/ hypotension and fever, secondary to viral illness vs infectious: stable After 2 L IV fluid in the emergency room, currently is continuation of IV fluid , blood pressure is stable at 97 SBP , general condition looks good, I feel she [facility] be [facility] Spiking fever, infectious versus virus, repeat blood culture because spiking fever, all culture is pending ESR 31, CRP 11.6, and procalcitonin 1.37 , onlymild elevation Was suspicion mild pericardia friction , ?virus pericarditis, echo was done was unremarkable Gi Vanco and zosyn for now because patient is possible sepsis with possible immunocompromised, she has history of breast cancer S/P lumpectomy and chemoradiation treatment years ago - Influenza swab negative - Lyme screen negative - CXR- negative for acute findings - - Checked total CK, cardiac enzyme and troponin, checked EKG too. They were all unremarkable - Mildly elevated lactic acid- will repeat q6 hrs - Infectious disease consult was requested Mild hypernatremia possible from IV fluid, change IV fluid to half normal saline with potassium Hypokalemia: Replaced Hypothyroidism: Continue Synthroid RLS: Continue Sinemet and Horizant The above condition stable resume home medication, GI prophylaxis: Protonix DVT prophylaxis: Lovenox SQ daily Code Status: LEVEL I, FULL Continued [facility] stay due to: multiple IV medications needed Discharge planning: home, uncertain
--- NOTE | 2016-12-05 11:32 | Progress Note ---
Progress Note Date of Service Dec 05, 2016. Progress Note ID Consult Dictated #[id number] A/P 1. UTI 2. Fever -Can continue zosyn, will stop vanco -pt would like to go home today as it is her birthday, understands urine culture pending, could transition to po levaquin x 3 days -thank you
[2016-12-05] MEDS: SODIUM CHLOR 0.45% + 20MEQ KCL 1,000 ML IV SCH ×2 (11:47→21:44)
--- NOTE | 2016-12-05 11:56 | INFECT. DISEASE CONSULTATION ---
DATE OF CONSULTATION: 12/05/2016 REQUESTING PHYSICIAN: Dr. Plata. HISTORY OF PRESENT ILLNESS: This is a 61-year-old female who was admitted to the hospital secondary to fevers and dizziness. She states the symptoms have resolved. Her daughter is with her during my examination. She states that today she is feeling significantly better. She also states that today is her birthday and she would like to be discharged to home. She has had an extensive workup for infectious etiology. She did have a T-max of 39.6 upon admission to the hospital overnight, she also had a T-max of 39.2; however, she states she was asymptomatic for this, this was at 11:30 last night. She is afebrile this morning. She denies any subjective fevers or chills today. She states her headache and dizziness have resolved. She did have a urine culture done in the ER which is growing a gram negative masoud which is yet to be identified. Her blood cultures from the are no growth. Repeat blood cultures were obtained yesterday and are pending. She did have a flu swab and Lyme titer as part of her initial workup which were negative. She was placed empirically on vancomycin and Zosyn yesterday and she remains on these antibiotics. Her white blood cell count today is normal at 7.0. Her sed rate is mildly elevated at 31. Her UA had 10-30 wbc's and no bacteria. Chest x-ray is negative. She also underwent echocardiogram which is negative. She is tolerating antibiotics. She denies any chest pain, cough, shortness of breath, nausea, vomiting, diarrhea. Her appetite is stable. She has no urinary symptoms. PAST MEDICAL HISTORY: Significant for breast cancer status post lumpectomy, restless leg syndrome, and hypothyroidism. PAST SURGICAL HISTORY: Unremarkable. FAMILY HISTORY: Noncontributory. SOCIAL HISTORY: Significant for history of tobacco use. She denies any drug or alcohol use. She lives with her family. ALLERGIES: SHE HAS ALLERGIES TO PENICILLIN, but is tolerating Zosyn without difficulty. MEDICATIONS: Include potassium, Sinemet, vancomycin, Zosyn, Protonix, Synthroid, Lovenox, MiraLax, Tylenol, Maalox, milk of magnesia And Zofran. PHYSICAL EXAMINATION: VITAL SIGNS: She is currently afebrile. Her T-max at 2321 was 39.2, pulse 63, respiratory rate 18, blood pressure 84/54, pulse ox is 98% on room air. GENERAL: She is awake, alert and oriented x3. She is in no acute distress. HEENT: Mucous membranes are moist. NECK: There is no cervical lymphadenopathy. HEART: Regular. LUNGS: Clear bilaterally. ABDOMEN: Soft, nontender, nondistended. EXTREMITIES: There is no edema. SKIN: Without rash. LABORATORY STUDIES: CBC today reveals a white blood cell count 7.0, hemoglobin 10, platelets are 137. Chemistry panel reveals a sodium of 146, potassium 3.9, chloride 118, bicarbonate 20, BUN 6, creatinine 0.7, glucose is 86. Total CK is mildly elevated at 295. Her CRP was 11.6. Procalcitonin was 1.3. LFTs are within normal limits. Urinalysis again 10-30 wbc's, but no bacteria. Urine cultures growing gram negative masoud. Blood cultures from the are no growth to date x2 sets. IMAGING DATA: Chest x-ray was unremarkable. IMPRESSION AND PLAN: Now likely urinary tract infection. The patient is anxious to be discharged to home. I did explain to the patient and her family that the urine culture likely will not be finalized until tomorrow. She is agreeable to go home on empiric oral antibiotics pending the result of her urine culture, if she remains clinically stable. My suggestion would be Levaquin 500 mg for a period of 72 hours, if she is to be discharged; otherwise antibiotics will be adjusted based on cultures MTDD
[2016-12-05] MEDS: LEVOFLOXACIN 500 MG TAB PO SCH (15:07)
[2016-12-05 15:50] VITALS: O2SAT 98
[2016-12-05 16:07] VITALS: BP 114/72; PULSE 69; TEMP 36.9; O2SAT 96
[2016-12-05] MEDS: HORIZANT 600 MG PO SCH (17:00)
[2016-12-05] MEDS: CARBIDOPA/LEVODOPA 25/100MG EXT REL TAB PO SCH (21:44)
[2016-12-05 21:49] VITALS: TEMP 38.9
[2016-12-05] MEDS: ENOXAPARIN 40 MG/0.4 ML SYR SQ SCH (21:53)
[2016-12-05] MEDS ORDERED: COUGH DROP (SUGAR FREE) LOZ 24 LOZ/1 BOX PO PRN (22:00)
[2016-12-05] MEDS ORDERED: NURSING DECISION MEDICATION ORDER SCH (22:00)
[2016-12-05] MEDS: ACETAMINOPHEN 325 MG TAB PO PRN (22:03)
[2016-12-06 00:28] VITALS: BP 84/46; PULSE 85; TEMP 36.7; O2SAT 93
[2016-12-06] MEDS ORDERED: VANCOMYCIN TROUGH ONE (03:30)
[2016-12-06 06:10] VITALS: BP 104/68; TEMP 36.8
[2016-12-06] MEDS: LEVOTHYROXINE 88 MCG TAB PO SCH (06:19)
[2016-12-06 07:20] LABS: HEMATOCRIT 29.3 % (37-47); MEAN CELL VOLUME 87.7 fL (80-100); MEAN CORPUSCULAR HEMOGLOBIN 30.5 pg (25-34); MEAN CORPUSCULAR HGB CONC 34.8 g/dl (32-36); MEAN PLATELET VOLUME 9.3 fL (7.4-10.4); PLATELET COUNT 239 K/uL (130-400); RED BLOOD COUNT 3.34 M/uL (4.2-5.4); WHITE BLOOD COUNT 7.86 K/uL (4.8-10.8)
[2016-12-06] MEDS: SODIUM CHLOR 0.45% + 20MEQ KCL 1,000 ML IV SCH (07:38)
[2016-12-06] MEDS: PANTOprazole SOD 40 MG TAB PO SCH (07:38)
[2016-12-06 07:45] VITALS: O2SAT 93
[2016-12-06 07:51] LABS: BUN/CREATININE RATIO 10.4 (10-20); CALCIUM 7.9 mg/dl (8.5-10.1); CREATININE 0.69 mg/dl (0.60-1.20)
[2016-12-06 08:00] VITALS: BP 115/71; PULSE 58; TEMP 36.6; O2SAT 96
[2016-12-06] MEDS ORDERED: OPTIRAY 320 IV PRN (08:45)
[2016-12-06] MEDS: LEVOFLOXACIN 500 MG TAB PO SCH (10:57)
--- NOTE | 2016-12-06 10:59 | Progress Note ---
Subjective Date of Service: Dec 06, 2016. Subjective Pt evaluation today including: conversation w/ patient, conversation w/ family , physical exam, chart review, lab review, review of studies, conversation w/ portfolio consultant, review of inpatient medication list Was still spiking fever up to 38.9 at 2149 last night, Otherwise no other complaint Problem List Medical Problems: (1) Dehydration Status: Acute (2) Fever Status: Acute (3) Hypotension Status: Acute Review of Systems Constitutional: + fever Eyes: No worsening of vision, No eye pain, No redness, No discharge, No diplopia ENT: No hearing loss, No unusual epistaxis, No nasal symptoms, No sore throat, No tinnitus, No dental problems, No trouble swallowing Respiratory: No cough, No sputum, No wheezing, No shortness of breath, No dyspnea on exertion, No dyspnea at rest, No hemoptysis Cardiac: No chest pain, No orthopnea, No PND, No edema, No claudication, No palpitations Abdomen: No pain, No nausea, No vomiting, No diarrhea, No constipation Musculoskeletal: No joint pain, No muscle pain, No swelling, No calf pain Female : No dysuria, No urinary frequency, No hematuria, No incontinence, No abnormal vaginal bleeding, No vaginal discharge Neurologic: No memory loss, No paralysis, No weakness, No numbness/tingling, No vertigo, No balance problems Psychiatric: No depression symptoms, No anhedonism, No anxiety, No insomnia, No substance abuse Heme: No abnormal bleeding/bruising, No clotting problems, No swollen lymph nodes, No night sweats Endo: No fatigue, No excessive thirst, No excessive urination Skin: No rash, No itch, No new/changing skin lesions, No color change, No bleeding Objective Vital Signs Date Time Temp Pulse Resp B/P (MAP) Pulse Ox O2 Delivery O2 Flow Rate FiO2 12/06/16 08:00 36.6 58 20 115/71 (86) 96 12/06/16 07:45 93 Room Air 12/06/16 06:10 36.8 104/68 (80) 12/06/16 00:28 36.7 85 20 84/46 (59) 93 Room Air 12/06/16 00:00 Room Air 12/05/16 21:49 38.9 12/05/16 16:07 36.9 69 18 114/72 (86) 96 Room Air 12/05/16 15:50 98 Room Air Physical Exam General Appearance: WD/WN, no apparent distress Eyes: normal inspection, PERRL, EOMI, sclerae normal ENT: normal ENT inspection, hearing grossly normal, pharynx normal Neck: supple, no adenopathy, thyroid normal, no JVD, no carotid bruits, trachea midline Respiratory/Chest: chest non-tender, lungs clear, normal breath sounds, no respiratory distress, no accessory muscle use Cardiovascular: regular rate, rhythm, no edema, no gallop, no JVD, no murmur Abdomen: normal bowel sounds, non tender, soft, no organomegaly, no pulsatile mass Extremities: normal range of motion, non-tender, normal inspection, no pedal edema, no calf tenderness, normal capillary refill, pelvis stable 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, no motor/sensory deficits, alert, normal mood/affect, oriented x 3 Skin: normal color, warm/dry, no rash Lymphatic: no adenopathy Laboratory Results Last 24 Hours Test 12/06/16 06:24 White Blood Count 7.86 K/uL Red Blood Count 3.34 M/uL Hemoglobin 10.2 g/dL Hematocrit 29.3 % Mean Corpuscular Volume 87.7 fL Mean Corpuscular Hemoglobin 30.5 pg Mean Corpuscular Hemoglobin Concent 34.8 g/dl RDW Standard Deviation 44.5 fL RDW Coefficient of Variation 13.8 % Platelet Count 239 K/uL Mean Platelet Volume 9.3 fL Sodium Level 145 mmol/L Potassium Level 4.0 mmol/L Chloride Level 114 mmol/L Carbon Dioxide Level 23 mmol/L Anion Gap 8.0 mmol/L Blood Urea Nitrogen 7 mg/dl Creatinine 0.69 mg/dl Est Creatinine Clear Calc Drug Dose 82.1 ml/min Estimated GFR () 110.4 Estimated GFR (Non- 95.3 BUN/Creatinine Ratio 10.4 Random Glucose 82 mg/dl Calcium Level 7.9 mg/dl Assessment and Plan 60 y/o female, with PMHx of R breast cancer s/p lumpectomy, RLS, and hypothyroidism admitted for possible sepsis with fever and hypotensive Possible sepsis with fever, hypotensive, possible source of infection is UTI, continue spiking fever, possible mild lower back pain, however CVA was nontender Illness w/ hypotension and fever, secondary to viral illness vs infectious: stable After 2 L IV fluid in the emergency room, currently is continuation of IV fluid , blood pressure is stable at 97 SBP , general condition looks good, I feel [facility] Patient still has Spiking fever, infectious disease input appreciated ESR 31, CRP 11.6, and procalcitonin 1.37 , onlymild elevation Was suspicion mild pericardia friction , ?virus pericarditis, echo was done was unremarkable was [place] and travis because patient was possible sepsis with possible immunocompromised upon admission, she has history of breast cancer S/P lumpectomy and chemoradiation treatment years ago - Influenza swab negative - Lyme screen negative - CXR- negative for acute findings - - Checked total CK, cardiac enzyme and troponin, checked EKG too. They were all unremarkable - Mildly elevated lactic acid- will repeat q6 hrs - Call was unremarkable - Infectious disease feel patient possible from UTI which caused the fever - Patient reports history of right-sided [place] nephrosis, follow-up with urologist - I'm checking abdominal CT with contrast to further evaluation of system abnormality, or if possible of pyelonephritis , because patient continued to have spiking fever Mild hypernatremia possible from IV fluid, change IV fluid to half normal saline with potassium, resolved Hypokalemia: Replaced Hypothyroidism: Continue Synthroid RLS: Continue Sinemet and Horizant The above condition stable resume home medication, GI prophylaxis: Protonix DVT prophylaxis: Lovenox SQ daily Code Status: LEVEL I, FULL Continued [facility] stay due to: multiple IV medications needed Discharge planning: home, uncertain
--- NOTE | 2016-12-06 12:27 | DIAGNOSTIC IMAGING REPORT ---
CT SCAN OF THE ABDOMEN AND PELVIS WITH IV CONTRAST CLINICAL HISTORY: Fever. COMPARISON STUDY: Abdominal CT dated 01/09/2011. Nuclear renal scan dated 11/29/2015. Renal ultrasound dated 11/21/2014. TECHNIQUE: Following the IV administration of 93 cc of Optiray 320, CT scan of the abdomen and pelvis is performed from the lung bases to the proximal femora. Images are reviewed in the axial, sagittal, and coronal planes. IV contrast was administered without complication. A dose lowering technique was utilized adhering to the principles of ALARA. CT DOSE: 264.86 mGy.cm FINDINGS: Lung bases: The heart is normal in size and without pericardial effusion. There are small pleural effusions with bibasilar atelectasis. Patchy airspace consolidation is seen at the left lung base. Liver: The contrast-enhanced liver is normal in size, contour, and attenuation. There is no intrahepatic biliary ductal dilatation. The hepatic veins and portal veins are patent. Gallbladder: Unremarkable. Spleen: Normal in size and attenuation. Pancreas: Unremarkable. Adrenal glands: Unremarkable. Kidneys: The contrast enhanced kidneys demonstrate mild cortical atrophy. There is severe right hydronephrosis. The right ureter is normal in caliber and this likely represents a chronic UPJ obstruction. The degree of hydronephrosis has significantly increased from 2010 but is similar to 2015 ultrasound. There is mild right-sided perinephric stranding. There is no left-sided hydronephrosis. There is a 6 mm nonobstructing left renal calculus. There is diminished perfusion of the right kidney as compared to the left. There is a circumaortic left renal vein. Subcentimeter cortical hypodensities in the left kidney likely represent cysts but are too small for definitive characterization. Abdominal vasculature: The abdominal aorta is normal in course and caliber. Bowel: The small bowel and colon are normal in course and caliber. The appendix is well-visualized and normal. Peritoneum: There is no intraperitoneal free air or abdominal ascites. There is a small fat-containing umbilical hernia. Lymphadenopathy: None. Pelvic viscera: The the bladder wall is mildly thickened. Minimal pericystic stranding is suggested. The uterus and adnexa are normal as visualized. There is a small volume of free fluid in the cul-de-sac. Skeletal structures: The skeletal structures are osteopenic. No lytic or blastic lesions are seen. IMPRESSION: 1. There are small pleural effusions with associated atelectasis. More patchy airspace consolidation is seen at the left lung base. Correlate clinically for evidence of pneumonia. 2. There is severe right hydronephrosis, similar to the 2015 ultrasound. The right ureter is normal in caliber, and this likely represents a UPJ type obstruction. 3. There is heterogeneously diminished perfusion of the right kidney as compared to the left and mild right-sided perinephric stranding. This may simply be related to hydronephrosis. Correlate clinically and with urinalysis for evidence of superimposed infection. 4. The bladder wall appears mildly thickened and there is minimal pericystic stranding. Again, correlate clinically and with urinalysis for evidence of cystitis. 5. There is a small volume of free fluid in the pelvis, likely on a reactive basis. 6. Nonobstructing left renal calculus. 7. Additional findings as above. Electronically signed by: Austin Beyer M.D. 12/06/2016 12:26 PM Dictated Date/Time: 12/06/2016 12:16 PM
[2016-12-06 16:24] VITALS: BP 93/65; PULSE 78; TEMP 36.8; O2SAT 98
[2016-12-06] MEDS: HORIZANT 600 MG PO SCH (16:57)
[2016-12-06] MEDS: ENOXAPARIN 40 MG/0.4 ML SYR SQ SCH (22:00)
[2016-12-06] MEDS: CARBIDOPA/LEVODOPA 25/100MG EXT REL TAB PO SCH (22:07)
[2016-12-07 00:38] VITALS: BP 117/74; PULSE 75; TEMP 37.1; O2SAT 94
[2016-12-07] MEDS: LEVOTHYROXINE 88 MCG TAB PO SCH (06:26)
[2016-12-07] MEDS ORDERED: LVQ500 PO (07:51)
--- NOTE | 2016-12-07 07:54 | Discharge Instructions ---
Discharge Instructions Date of Service Dec 07, 2016. Admission Reason for Admission: Dehydration, Fever, Hypotension Discharge Discharge Diagnosis / Problem: sepsis with fever, uti, possible pyelonephritis Discharge Goals Goal(s): Decrease discomfort, Improve function, Increase independence, Improve disease control, Improve nutritional status, Learn about illness, Diagnostic testing, Therapeutic intervention, Prevent Disease Progression, Specific goals Activity Recommendations Activity Limitations: resume your previous activity . Instructions / Follow-Up Instructions / Follow-Up you have sepsis with fever, hypotensive, possible source of infection is UTI, I am giving you Levaquin for 7 days, you need to be seen by pcp in 2-3 days, adjust antibiotics if needed per sensitivity you have history of right-sided [place] nephrosis, you need to continue follow-up with urologist, to be seen in 7-10 days - you need to follow up with your primary care physician in 1 week, - take medication as instructed, never overdose or any misuse, or take with alcohol, because misuse of medicine may cause organ damage or , call your primary care physician if have questions of medicaitons. - call your primary care physician OR go to local emergency room if has any fever/chill, chest pain, shortness of breathing, nausea/vomiting/abdominal pain , facial droop/slurry speech/local weakness, or if has any questions. - fall precaution - diet as instructed - you need to follow up with your subspecialist - you should understand that it is important to follow up the above instruction , and "not following the above instruction" may cause delayed or missed care of your medical conditions which may cause permanent organ damage and even . Current Hospital Diet Patient's current hospital diet: Regular Diet Discharge Diet Recommended Diet: Regular Diet Procedures Procedures Performed: no Pending Studies Studies pending at discharge: no Medical Emergencies . Who to Call and When: Medical Emergencies: If at any time you feel your situation is an emergency, please call 911 immediately. . Non-Emergent Contact Non-Emergency issues call your: Primary Care Provider, Urologist . . "Provider Documentation" section prepared by Raghu Plata. . VTE Core Measure Inpt VTE Proph given/why not?: Enoxaparin (Lovenox)DALTON, T.EAb Schreiber, SCD's
[2016-12-07 08:00] VITALS: O2SAT 93
[2016-12-07 08:14] LABS: CREATININE 0.85 mg/dl (0.60-1.20)
[2016-12-07 08:21] VITALS: BP 110/70; PULSE 65; TEMP 36.7; O2SAT 93
[2016-12-07] MEDS: PANTOprazole SOD 40 MG TAB PO SCH (08:32)
--- NOTE | 2016-12-07 10:21 | Discharge Summary ---
Discharge Summary Date of Service Dec 07, 2016. Discharge Summary Admission Date: Dec 03, 2016 at 18:41 Discharge Date: Dec 07, 2016 Discharge Disposition: Home Principal Diagnosis: sepsis with fever, hypotensive, possible source of infection is UTI/pyelo Problems/Secondary Diagnoses: history of right-sided [place] nephrosis, Immunizations: Have You Had Influenza Vaccine: Yes Influenza Vaccine Date: Dec 03, 2011 History of Tetanus Vaccine?: Yes Tetanus Immunization Date: Dec 24, 2011 History of Pneumococcal: No History of Hepatitis B Vaccine: No Procedures: No Consultations: No Medication Reconciliation New Medications: Levofloxacin (Levofloxacin) 500 Mg Tab 500 MG PO DAILY@1100 for 7 Days, TAB Continued Medications: Calcium Carbonate-Cholecalcife (Caltrate 600+D) 1 Tab Tab 1 TAB PO DAILY Gabapentin Enacarbil (Horizant) 300 Mg Tab 600 MG PO DAILY@1700 Levodopa/Carbidopa (Sinemet Cr 25MG/100MG) 1 Ea Tabcr 1 TAB PO HS, TAB Levothyroxine Sodium (Synthroid) 88 Mcg Tab 88 MCG PO DAILY Discharge Exam Continue doing well, no fever or chill, no pain, eating voiding good Review of Systems: Constitutional: No fever, No chills, No sweats, No weight loss, No weakness , No fatigue, No problem reported Eyes: No worsening of vision, No eye pain, No redness, No discharge, No diplopia, No problem reported ENT: No hearing loss, No unusual epistaxis, No nasal symptoms, No sore throat, No tinnitus, No dental problems, No trouble swallowing, No problem reported Respiratory: No cough, No sputum, No wheezing, No shortness of breath, No dyspnea on exertion, No dyspnea at rest, No hemoptysis, No problem reported Cardiovascular: No chest pain, No orthopnea, No PND, No edema, No claudication, No palpitations, No problem reported Abdomen: No pain, No nausea, No vomiting, No diarrhea, No constipation, No GI bleeding, No problem reported Genitourinary - Female: No dysuria, No urinary frequency, No urinary urgency , No urinary incontinence, No urinary retention, No hematuria, No dysmenorrhea, No menorrhagia, No metrorrhagia, No rash, No vaginal bleeding, No vaginal discharge, No vaginal itching, No vulvodynia, No , No problem reported Psychiatric: No depression symptoms, No anhedonism, No anxiety, No insomnia , No substance abuse, No problem reported Endocrine: No fatigue, No excessive thirst, No excessive urination, No problem reported Hematologic / Lymphatic: No abnormal bleeding/bruising, No clotting problems , No swollen lymph nodes, No night sweats, No problem reported Integumentary: No rash, No itch, No new/changing skin lesions, No color change, No bleeding, No problem reported Physical Exam: General Appearance: WD/WN, no apparent distress Eyes: normal inspection, PERRL ENT: normal ENT inspection, hearing grossly normal, TMs normal Neck: supple, no adenopathy Respiratory/Chest: chest non-tender, + decreased breath sounds Cardiovascular: regular rate, rhythm, no edema, no gallop, no JVD, no murmur , normal peripheral pulses Abdomen / GI: normal bowel sounds, non tender, soft, no organomegaly, no pulsatile mass Extremities: normal capillary refill, no pedal edema 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, no motor/sensory deficits , alert, normal mood/affect, normal reflexes, oriented x 3 Skin: normal color, warm/dry, no rash Hospital Course 60 y/o female, with PMHx of R breast cancer s/p lumpectomy, RLS, and hypothyroidism admitted for possible sepsis with fever and hypotensive Possible sepsis with fever, hypotensive, possible source of infection is UTI, Was spiking fever after arriving to the hospital, possible mild lower back pain , however CVA was nontender, However more than 36 hours no spiking fever so far, her general condition looks good Illness w/ hypotension and fever, likely secondary infectious: stable After 2 L IV fluid in the emergency room, currently is continuation of IV fluid , blood pressure is stable at 97 SBP , general condition looks good, I feel [facility] infectious disease input appreciated ESR 31, CRP 11.6, and procalcitonin 1.37 , only mild elevation Was suspicion mild pericardia friction , ?virus pericarditis, echo was done was unremarkable was Vanco and zosyn because patient was possible sepsis with possible immunocompromised upon admission, she has history of breast cancer S/P lumpectomy and chemoradiation treatment years ago - Influenza swab negative - Lyme screen negative - CXR- negative for acute findings - - Checked total CK, cardiac enzyme and troponin, checked EKG too. They were all unremarkable - Mildly elevated lactic acid- will repeat q6 hrs - Call was unremarkable - Infectious disease feel patient possible from UTI which caused the fever - Patient reports history of right-sided [place] nephrosis, follow-up with urologist - abdominal CT with contrast to further evaluation of system abnormality, which was done, shows possible of pyelonephritis , - History of right-sided [place] nephrosis has be follow-up with urologist, abdominal CT studies shows again severe hydronephrosis, but does not changes since 2015 Has discussed in detail with patient and family about the CT results, advised him to follow-up with PCP and urologist, Mild hypernatremia possible from IV fluid, change IV fluid to half normal saline with potassium, resolved Hypokalemia: Replaced Hypothyroidism: Continue Synthroid RLS: Continue Sinemet and Horizant The above condition stable resume home medication, GI prophylaxis: Protonix DVT prophylaxis: Lovenox SQ daily Code Status: LEVEL I, FULL Today patient discharged home with stable condition Instructions / Follow-Up you have sepsis with fever, hypotensive, possible source of infection is UTI, I am giving you Levaquin for 7 days, you need to be seen by pcp in 2-3 days, adjust antibiotics if needed per sensitivity you have history of right-sided [place] nephrosis, you need to continue follow-up with urologist, to be seen in 7-10 days - you need to follow up with your primary care physician in 1 week, - take medication as instructed, never overdose or any misuse, or take with alcohol, because misuse of medicine may cause organ damage or , call your primary care physician if have questions of medicaitons. - call your primary care physician OR go to local emergency room if has any fever/chill, chest pain, shortness of breathing, nausea/vomiting/abdominal pain , facial droop/slurry speech/local weakness, or if has any questions. - fall precaution - diet as instructed - you need to follow up with your subspecialist - you should understand that it is important to follow up the above instruction , and "not following the above instruction" may cause delayed or missed care of your medical conditions which may cause permanent organ damage and even . Total Time Spent: Less than 30 minutes This includes examination of the patient, discharge planning, medication reconciliation, and communication with other providers. Discharge Instructions Please refer to the electronic Patient Visit Report (Discharge Instructions) for additional information. Additional Copies To Malcom Bartlett MD; Princess Herzog., RUBBER WORKER
== END 2016-12-07 09:32 | disposition home or self-care (01) | DRG 872 ==
LOC: EDBD 15:22 → C.EDC 15:23 → C.MS4W 18:41 → ENRESERV 19:39
PROVIDERS: ADMIT Hospitalist; ATTEND Hospitalist
DX: A41.9 Sepsis, unspecified organism (principal); N39.0 Urinary tract infection, site not specified; E03.9 Hypothyroidism, unspecified; E87.6 Hypokalemia; G25.81 Restless legs syndrome; Z87.891 Personal history of nicotine dependence; Z83.3 Family history of diabetes mellitus

== ENCOUNTER → 2017-01-27 | Outpatient (CLI) | payer BC ==
[~2017-01-27] MED LIST changes: +CALC-354 PO; -CALCTAB5 PO; -CHOL100010 PO; -FSM70 PO; +GABA-774 PO; +LVQ500 PO; -TRAZPOW
== END | disposition home or self-care (01) ==
LOC: C.MAMM 14:36
PROVIDERS: ATTEND Internal Medicine Hematology & Oncology
DX: Z12.31 Encounter for screening mammogram for malignant neoplasm of breast (principal); Z85.3 Personal history of malignant neoplasm of breast

== ENCOUNTER → 2017-02-03 | Outpatient (CLI) | payer BC ==
[~2017-02-03] MED LIST changes: +FUROSEMIDE INJ 10 MG/ML 2 ML VIAL IV ONE
--- NOTE | 2017-02-03 13:05 | DIAGNOSTIC IMAGING REPORT ---
RENAL SCAN DIURETIC (MAG 3) CLINICAL HISTORY: 61-year-old female with history of right hydronephrosis. TECHNIQUE: A nuclear diuretic renal scan is performed following the IV administration of 9 mCi technetium 99m radiolabeled MAG3. Posterior flow images were acquired at one frame every two seconds for a total 30 frames. Posterior static images were acquired every 5 minutes for a total of 45 minutes. IV Lasix was administered at 20 minutes. Renal curves were calculated. COMPARISON: 12/09/[address] from 12/06/2016. FINDINGS: On the flow images, prominent though asymmetric perfusion of both kidneys with slight hypoperfusion of the right kidney comparison to the left. On the cortical images, normal accumulation of radiotracer in the renal parenchyma though excretion from the right kidney is delayed with persistent activity in the right renal pelvis. Subsequently, clearance phase imaging demonstrates time to peak on the right measuring 28 minutes and on the left was measuring 5 minutes. The time to half max pre-Lasix on the right is unable to be calculated secondary to the plateau curve and on the left measures 20.3 minutes. The time to half post Lasix on the right is unable to be calculated secondary to the plateau curve and on the left measures 3.6 minutes. Abnormal retention of radiotracer in the right renal collecting system after furosemide administration. Split function measurements of 34.6% on the right and 65.4% on the left. Reference ranges: Normal time to peak: 3 to 5 minutes. Normal time to half max pre-Lasix: 8-12 minutes. Ratio of counts at 20 minutes/3 minutes should be less than 0.8 and 20 minutes/peak less than 0.3. Washout of at least 50% of tracer within 10 minutes post Lasix normal; if greater than 50% retention between 10 to 20 minutes post Lasix, indeterminate for obstruction; if greater than 50% retention beyond 20 minutes, suspected obstruction. IMPRESSION: 1. Abnormal renal scan with the right kidney demonstrating a delayed time to peak, delayed time to half max pre-Lasix, and delayed washout post-Lasix. These findings are consistent with obstruction. Correlating with the anatomic appearance on CT from 12/06/2016. This is most likely a ureteropelvic junction obstruction. 2. Relative renal function on the right 34.6% and on the left kidney 65.4%. Electronically signed by: Cm Bright M.D. 02/03/2017 1:04 PM Dictated Date/Time: 02/03/2017 12:54 PM
== END | disposition home or self-care (01) ==
LOC: C.NUCL 11:06
PROVIDERS: ATTEND Urology
DX: N13.30 Unspecified hydronephrosis (principal); R93.421 Abnormal radiologic findings on diagnostic imaging of right kidney

== ENCOUNTER 2017-04-16 05:37 | Inpatient (IN) | payer OTHER ==
[2017-03-31 14:54] VITALS: BMI 21.0
--- NOTE | 2017-03-31 15:04 | PAT Medication Instructions ---
Service Date Mar 31, 2017. Current Home Medication List Calcium Carbonate-Cholecalcife (Caltrate 600+D), 1 TAB PO BID Gabapentin (Neurontin), 300 MG PO BID Levodopa/Carbidopa (Sinemet Cr 25MG/100MG), 1 TAB PO HS Levothyroxine Sodium (Levothyroxine Sodium), 1 TAB PO HS Triamcinolone Acet (Triamcinolone Acetonide), 1 APPLN TOP QAM Medication Instructions For Your Scheduled Surgery - Hold the following medications 24 hours prior to surgery: Triamcinolone Acet (Triamcinolone Acetonide), 1 APPLN TOP QAM - Hold the following medications the morning of surgery: Calcium Carbonate-Cholecalcife (Caltrate 600+D), 1 TAB PO BID - Take the following medications the morning of surgery with a sip of water: Gabapentin (Neurontin), 300 MG PO BID - Take the following medications as scheduled the night before surgery: Levothyroxine Sodium (Levothyroxine Sodium), 1 TAB PO HS Levodopa/Carbidopa (Sinemet Cr 25MG/100MG), 1 TAB PO HS Gabapentin (Neurontin), 300 MG PO BID Calcium Carbonate-Cholecalcife (Caltrate 600+D), 1 TAB PO BID If you have any questions please call us at [phone] or [phone] or [phone]
[2017-04-16] VITALS (12 sets, daily range): BP systolic 92–158; BP diastolic 54–70; PULSE 62–77; TEMP 36.2–37; O2SAT 95–100; Ht 167.6 cm; Wt 61.2 kg
[~2017-04-16] VITALS: Ht 167.6 cm; Wt 61.2 kg
[~2017-04-16 05:37] MED LIST changes: -FUROSEMIDE INJ 10 MG/ML 2 ML VIAL IV ONE; +GABA-113 PO; -GABA-774 PO; +LEVO100T7 PO; -LVQ500 PO; -SYN88 PO; +TRMO115 TOP
[2017-04-16] MEDS ORDERED: ACETAMINOPHEN 1000 MG/100 ML IV IV SCH (06:00)
[2017-04-16] MEDS ORDERED: CEFAZOLIN 2000MG IV PUSH 15 ML IV SCH (06:00)
[2017-04-16] MEDS ORDERED: LACTATED RINGER'S 1000ML 1,000 ML IV SCH (06:00)
--- NOTE | 2017-04-16 07:07 | History & Physical Bridge Note ---
H&P Re-Evaluation Bridge Note: I have examined the patient, reviewed the History & Physical and in the interval since the performance of the History & Physical I have noted the following changes of clinical significance: No changes noted
[2017-04-16] MEDS ORDERED: MIDAZOLAM HCL 1 MG/ML 2ML VIAL ONE (07:11)
[2017-04-16] MEDS ORDERED: FENTANYL CITRATE INJ 50 MCG/1 ML 2 ML VIAL ONE ×3 (07:11→11:29)
[2017-04-16] MEDS ORDERED: BUPIVACAINE 0.5 % 5 MG/1 ML MPF 30ML VIAL ONE (07:22)
[2017-04-16] MEDS ORDERED: GELATIN SPONGE SZ 100 ONE (07:22)
[2017-04-16] MEDS ORDERED: DEXAMETHASONE SOD INJ 4 MG/ML VIAL ONE (07:52)
[2017-04-16] MEDS ORDERED: LIDOCAINE HCL 2% 2 ML VIAL (20MG/ML) ONE (08:10)
[2017-04-16] MEDS ORDERED: PROPOFOL IV EMULSION 10 MG/ML 20 ML VIAL IV ONE (08:10)
[2017-04-16] MEDS ORDERED: ACETAMINOPHEN 1000 MG/100 ML IV IV ONE (08:10)
[2017-04-16] MEDS ORDERED: ROCURONIUM BROMIDE 10 MG/ML 5 ML VIAL IV ONE ×2 (08:10→10:15)
[2017-04-16] MEDS ORDERED: ONDANSETRON INJ 2 MG/ML 2 ML VIAL ONE (08:10)
[2017-04-16] MEDS ORDERED: EpHEDrine SULFATE 50MG/5ML SYR ONE (10:15)
[2017-04-16] MEDS ORDERED: GLYCOPYRROLATE INJ 0.2 MG/ML VIAL ONE (10:15)
[2017-04-16] MEDS ORDERED: NEOSTIGMINE METHYLSULFATE 5 MG/5 ML SYR ONE (10:15)
[2017-04-16] MEDS ORDERED: PHENYLEPHRINE 100MCG/ML 5ML SYR ONE (10:15)
[2017-04-16] MEDS: LACTATED RINGER'S 1000ML 1,000 ML IV SCH ×2 (10:35→17:29)
[2017-04-16] MEDS ORDERED: ACETAMINOPHEN IV 650 MG in EMPTY BAG 0 ML IV PRN (10:45)
[2017-04-16] MEDS ORDERED: ONDANSETRON INJ 2 MG/ML 2 ML VIAL IV PRN ×2 (10:45→11:30)
[2017-04-16] MEDS ORDERED: CEFAZOLIN IV 2,000 MG in DEXTROSE 5% 50ML 50 ML IV SCH (10:45)
[2017-04-16] MEDS ORDERED: HYDROmorphone INJ 1 MG/ML SYR IV PRN ×2 (10:45→11:30)
--- NOTE | 2017-04-16 10:46 | [facility] Post Operative Brief Note ---
Immediate Operative Summary Operative Date Apr 16, 2017. Pre-Operative Diagnosis 1. Hydronephrosis of right kidney. 2. Ureteropelvic junction obstruction, right. Post-Operative Diagnosis 1. Hydronephrosis of right kidney. 2. Ureteropelvic junction obstruction, right. Procedure(s) Performed Right Laparosopic Dismembered Pyeloplasty with Right Ureteral Antegrade Stent Insertion, and Right Laparoscopic Nephropexy, [place] Robotic Assistance Surgeon Dr. Russ Man Raw Stock Dyeing Machine Tender Surgeon(s) JASON Gardner Estimated Blood Loss 40 mL Findings Consistent with Post-Op Diagnosis Specimens Permanent specimens A: Right ureteropelvic junction Drains R 6 fr multilength stent, #10 GLORIA drain, garces to gravity Anesthesia Type General Complication(s) none Disposition Accompanied Pt To Recover: no Disposition: Recovery Room / PACU
[2017-04-16 11:21] LABS: HEMATOCRIT 38.6 % (37-47); HEMOGLOBIN 13.1 g/dL (12.0-16.0); MEAN CELL VOLUME 89.4 fL (80-100); MEAN CORPUSCULAR HEMOGLOBIN 30.3 pg (25-34); MEAN PLATELET VOLUME 9.5 fL (7.4-10.4); PLATELET COUNT 167 K/uL (130-400); RED CELL DISTRIBUTION WIDTH CV 13.3 % (11.5-14.5); RED CELL DISTRIBUTION WIDTH SD 44.2 fL (36.4-46.3); WHITE BLOOD COUNT 7.55 K/uL (4.8-10.8)
[2017-04-16 11:26] LABS: MEAN CORPUSCULAR HGB CONC 33.9 g/dl (32-36)
[2017-04-16] MEDS ORDERED: FENTANYL CITRATE INJ 50 MCG/1 ML 2 ML VIAL IV PRN (11:30)
[2017-04-16] MEDS ORDERED: ATROPINE SULFATE 0.1 MG/ML 5ML SYR IV PRN (11:30)
[2017-04-16] MEDS ORDERED: EpHEDrine SULFATE INJ 50 MG/ML AMP IV PRN (11:30)
--- NOTE | 2017-04-16 11:33 | DIAGNOSTIC IMAGING REPORT ---
KUB CLINICAL HISTORY: Status post pyeloplasty. FINDINGS: 2 AP, portable, supine abdominal radiographs are correlated with abdominal CT dated 12/06/2016. There is a nonobstructed abdominal bowel gas pattern. Foci of intraperitoneal free air are suspected although this is difficult to assess due to supine positioning. A surgical drain is present in the right upper quadrant. A right ureteral stent is in place. No abnormal abdominal calcifications are identified. Numerous phleboliths are observed in the pelvis. The skeletal structures appear osteopenic. The bony pelvis appears intact. The lung bases are clear as imaged. IMPRESSION: 1. Nonobstructed abdominal bowel gas pattern. 2. A surgical drain and right ureteral stent are in place. 3. Foci of intraperitoneal free air are suggested although this is difficult to assess on these supine images. This may be related to recent surgery. Clinical correlation will be required. If confirmation is desired an upright or decubitus abdominal radiograph would be appropriate. Electronically signed by: Austin Beyer M.D. 04/16/2017 11:31 AM Dictated Date/Time: 04/16/2017 11:29 AM
[2017-04-16 11:40] LABS: CALCIUM 8.8 mg/dl (8.5-10.1); CREATININE 1.14 mg/dl (0.60-1.20); POTASSIUM 3.6 mmol/L (3.5-5.1)
--- NOTE | 2017-04-16 12:40 | Anesthesiology Progress Note ---
Anesthesia Post Op Note Date & Time Apr 16, 2017 at 12:40 Vital Signs Pain Intensity: 3 Vital Signs Past 12 Hours Date Time Temp Pulse Resp B/P (MAP) Pulse Ox O2 Delivery O2 Flow Rate FiO2 04/16/17 12:30 36.3 66 16 158/55 (89) 97 Room Air 04/16/17 12:10 54 16 131/85 100 Nasal Cannula 2 04/16/17 11:55 60 16 133/66 100 Nasal Cannula 2 04/16/17 11:40 36.2 59 15 130/63 100 Nasal Cannula 2 04/16/17 11:30 58 14 116/78 100 Nasal Cannula 2 04/16/17 11:20 66 12 137/75 100 Oxymask 8 04/16/17 11:10 80 12 125/72 100 Oxymask 8 04/16/17 11:00 36 78 16 123/70 100 Oxymask 8 04/16/17 05:58 36.5 76 18 106/66 (79) 100 Room Air Notes Mental Status: alert / awake / arousable Pt Amnestic to Procedure: Yes Nausea / Vomiting: adequately controlled Pain: adequately controlled Airway Patency, RR, SpO2: stable & adequate BP & HR: stable & adequate Hydration State: stable & adequate Anesthetic Complications: no major complications apparent
[2017-04-16 13:28] LABS: PTT PATIENT 25.4 SECONDS (21.0-31.0)
[2017-04-16] MEDS: OXYCODONE/ACETAMINOPHEN 7.5-325 TAB PO PRN ×2 (13:35→20:45)
[2017-04-16] MEDS: CEFAZOLIN IV 2,000 MG in SYRINGE 0 ML IV SCH ×2 (15:32→23:40)
--- NOTE | 2017-04-16 15:46 | [facility] Operative Report ---
Operative Report Operative Date Apr 16, 2017. Pre-Operative Diagnosis Right chronic hydronephrosis, ureteropelvic juntion obstruction, renal ptosis. Post-Operative Diagnosis Same. Procedure(s) Performed Right Laparosopic Dismembered Pyeloplasty with Right Ureteral Antegrade Stent Insertion, and Right Laparoscopic Nephropexy, Da Raven Robotic Assistance Surgeon Dr. Russ Man Alligator Shear Operator Surgeon(s) JASON Gardner Estimated Blood Loss 40 mL Findings Watertight anastomosis, good stent position on postoperative KUB, resolved renal hypermobility after nephropexy. Specimens Permanent specimens A: Right ureteropelvic junction Drains R 6 fr multilength stent, #10 GLORIA drain, garces to gravity Anesthesia Type General Complication(s) none Disposition no Recovery Room / PACU Indications Patient is a pleasant 61-year-old female with a long-standing history of right-sided hydronephrosis with worsening renal drainage on Lasix renal scan and worsening hydronephrosis on imaging who is here today for dismembered pyeloplasty using robotic assistance. Please see H&P for further details. Patient is also been noted to have a hypermobile kidney with renal ptosis on previous IVP. Nephropexy is considered depending on intraoperative findings. Intravenous Ancef was provided for antibiotic coverage and SCDs used for DVT prophylaxis. Description of Procedure Patient was properly identified and brought into the operative suite after identification for proper consent in the chart. General anesthesia with endotracheal intubation was initiated and patient was prepped and draped in the standard fashion for this procedure. Full timeout procedure was followed. All port sites were anesthetized with local prior to incision. Patient was placed in a right side up well-padded flank position with gentle angulation. Table was flexed. A 12 mm incision was made lateral to the rectus muscle in the mid abdomen and abdomen was entered under direct visualization using a 12 mm visual obturator and a 0 laparoscope. Abdomen was insufflated to 15 mmHg and carefully inspected with no evidence of injury on laparoscopic axis. Two 7 mm robotics ports were placed as well as a 10 mm and 5 mm child welfare assistant port. A paucity of intra-abdominal fat with easy identification of the patient's anatomy. Ascending colon was mobilized laterally along the white line of Toldt until the psoas muscle was identified. IVC and right-sided ureter were both positively identified. Ureter was followed up to the level of the ureteropelvic junction or a dilated renal pelvis consistent with the patient's preoperative imaging was appreciated. Dissection was carried cephalad to the level of the renal artery and no crossing vessel was identified at the level of the obstruction. Patient's kidney was noted to be easily brought down into the lower abdomen/high pelvis and therefore nephropexy was felt to be needed at the end of the case after pyeloplasty was completed. Using Schrader scissors the UPJ was excised in an angulated fashion. Ureter was widely spatulated in the correct orientation prior to completion of removal of the ureteral pelvic junction hypokinetic segment. This was sent for pathologic analysis. Using a 3 -0 Vicryl suture the back wall of the ureter and renal pelvis were approximated. A 6 Armenian multilength stent was inserted over a sensor wire down the ureter without resistance until a coil was remaining in the surgical field. This was placed within the renal pelvis with excellent location of the stent. Anterior wall of the ureter and renal pelvis were then reapproximated as well. Excellent closure with a tension-free, watertight anastomosis was appreciated. At the superior lateral aspect of the kidney 2-0 nylon sutures were used to pex the kidney at the level of the renal capsule to the fascia of the diaphragm and retroperitoneal musculature. After 3 of these sutures were placed kidney was noted to no longer descend in a ptotic fashion. Lowermost robotic instrument was removed and a #10 GLORIA drain flat was placed via this port over the level of the renal hilum. Robotic instruments were removed and robot was undocked. Excess carbon dioxide gas was removed from the abdomen. 0 Vicryl was used on a UR 5 and UR 6 needle to close the fascia at the site of the 12 mm and 7 mm ports. 2-0 silk was used to secure the #[address]. Skin was closed using 4-0 Monocryl and Dermabond. Anesthesia was reversed and patient was transferred to the recovery room in stable condition. Follow-up care: Patient will be admitted to the floor for standard postoperative management. I attest to the content of the Intraoperative Record and any orders documented therein. Any exceptions are noted below.
[2017-04-16] MEDS: HEPARIN SOD 5000 UNIT/0.5 ML CARP SQ SCH (19:00)
[2017-04-16] MEDS: CALCIUM 600MG + VIT D 400 IU TAB PO SCH (20:22)
[2017-04-16] MEDS: DOCUSATE SODIUM 100 MG CAP PO SCH (20:22)
[2017-04-16] MEDS: GABAPENTIN 300 MG CAP PO SCH (20:22)
[2017-04-16] MEDS ORDERED: LEVOTHYROXINE 100 MCG TAB PO SCH (21:00)
[2017-04-16] MEDS ORDERED: CARBIDOPA/LEVODOPA 25/100MG EXT REL TAB PO SCH (21:00)
[2017-04-17] MEDS: LACTATED RINGER'S 1000ML 1,000 ML IV SCH (02:47)
[2017-04-17 03:00] VITALS: BP 93/52; PULSE 78; TEMP 36.8; O2SAT 96
[2017-04-17] MEDS ORDERED: NURSING VERBAL MED ORDER ONE ×2 (03:00→09:00)
[2017-04-17] MEDS: HEPARIN SOD 5000 UNIT/0.5 ML CARP SQ SCH (06:47)
[2017-04-17] MEDS: CEFAZOLIN IV 2,000 MG in SYRINGE 0 ML IV SCH (07:24)
[2017-04-17 08:20] VITALS: BP 108/63; PULSE 67; TEMP 36.9; O2SAT 97
[2017-04-17] MEDS: CALCIUM 600MG + VIT D 400 IU TAB PO SCH (08:35)
[2017-04-17] MEDS: DOCUSATE SODIUM 100 MG CAP PO SCH (08:35)
[2017-04-17] MEDS: GABAPENTIN 300 MG CAP PO SCH (08:35)
--- NOTE | 2017-04-17 08:44 | Progress Note ---
Subjective Date of Service: Apr 17, 2017. Subjective Pt evaluation today including: conversation w/ patient, physical exam, chart review, lab review (pending this AM), review of inpatient medication list Pain: Controlled PO Intake: Juan M soft mechanical, no nausea Voiding: garces catheter in place (urine clear) 61 yo female POD#1 s/p R robotic pyeloplasty and nephropexy. She is doing well, juan m soft mechanical diet. She notes ambulation yesterday without difficulty. AM labs pending, min GLORIA output. Problem List Medical Problems: (1) Dehydration Status: Acute (2) Fever Status: Acute (3) Hypotension Status: Acute Review of Systems Constitutional: No fever, No chills Eyes: No worsening of vision ENT: No hearing loss, No unusual epistaxis Respiratory: No wheezing, No shortness of breath Cardiac: No chest pain Abdomen: No nausea, No vomiting Female : No hematuria Neurologic: No memory loss, No paralysis Psychiatric: No depression symptoms Objective Vital Signs Date Time Temp Pulse Resp B/P (MAP) Pulse Ox O2 Delivery O2 Flow Rate FiO2 04/17/17 08:20 36.9 67 18 108/63 (78) 97 Room Air 04/17/17 03:00 36.8 78 16 93/52 (66) 96 Room Air 04/16/17 23:30 95 Room Air 04/16/17 23:10 37.0 72 16 92/54 (67) 95 Room Air 04/16/17 19:40 37.0 77 18 117/67 (84) 99 Room Air 04/16/17 17:15 36.7 72 16 101/62 (75) 96 Room Air 04/16/17 16:01 95 Room Air 04/16/17 15:58 36.7 69 16 95/59 (71) 95 Nasal Cannula 04/16/17 14:35 36.5 68 16 96/58 (71) 98 Room Air 04/16/17 13:30 75 16 114/68 (83) 100 04/16/17 13:00 36.2 62 16 122/70 (87) 98 04/16/17 12:45 Room Air 04/16/17 12:39 97 Room Air 04/16/17 12:30 36.3 66 16 158/55 (89) 97 Room Air 04/16/17 12:10 54 16 131/85 100 Nasal Cannula 2 04/16/17 11:55 60 16 133/66 100 Nasal Cannula 2 04/16/17 11:40 36.2 59 15 130/63 100 Nasal Cannula 2 04/16/17 11:30 58 14 116/78 100 Nasal Cannula 2 04/16/17 11:20 66 12 137/75 100 Oxymask 8 04/16/17 11:10 80 12 125/72 100 Oxymask 8 04/16/17 11:00 36 78 16 123/70 100 Oxymask 8 Physical Exam General Appearance: WD/WN, no apparent distress ENT: normal ENT inspection Neck: supple, no adenopathy Respiratory/Chest: no respiratory distress, no accessory muscle use Cardiovascular: no JVD Abdomen: non tender, soft, + pertinent finding (nondistended, inc c/d/i) Extremities: non-tender Neurologic/Psychiatric: alert, oriented x 3 Skin: normal color Laboratory Results Last 24 Hours Test 04/16/17 11:06 04/16/17 13:02 04/17/17 04:44 White Blood Count 7.55 K/uL Red Blood Count 4.32 M/uL Hemoglobin 13.1 g/dL Hematocrit 38.6 % Mean Corpuscular Volume 89.4 fL Mean Corpuscular Hemoglobin 30.3 pg Mean Corpuscular Hemoglobin Concent 33.9 g/dl RDW Standard Deviation 44.2 fL RDW Coefficient of Variation 13.3 % Platelet Count 167 K/uL Mean Platelet Volume 9.5 fL Sodium Level 141 mmol/L Potassium Level 3.6 mmol/L Chloride Level 105 mmol/L Carbon Dioxide Level 28 mmol/L Anion Gap 8.0 mmol/L Blood Urea Nitrogen 17 mg/dl Creatinine 1.14 mg/dl Est Creatinine Clear Calc Drug Dose 49.7 ml/min Estimated GFR () 61.0 Estimated GFR (Non- 52.6 BUN/Creatinine Ratio 15.1 Random Glucose 136 mg/dl Calcium Level 8.8 mg/dl Prothrombin Time 10.7 SECONDS Prothromb Time International Ratio 1.0 Activated Partial Thromboplast Time 25.4 SECONDS Partial Thromboplastin Ratio 1.0 Assessment and Plan A/P 61 yo female POD#1 s/p R pyeloplasty and nephropexy, doing well. Doing quite well. Advance diet and activity today. BELINDA garces, monitor GLORIA output - if it remains low, likely DC GLORIA and DC home later today. Activity limitations reviewed, outpatient appointments confirmed. Discharge planning: home
[2017-04-17] MEDS ORDERED: CLC100 PO (08:52)
[2017-04-17] MEDS ORDERED: OXYC7.5T62 PO (08:52)
--- NOTE | 2017-04-17 08:53 | Discharge Instructions ---
Discharge Instructions Date of Service Apr 17, 2017. Admission Reason for Admission: Hydronephrosis Discharge Discharge Diagnosis / Problem: Right UPJ obtruction Discharge Goals Goal(s): Decrease discomfort, Improve disease control, Therapeutic intervention Activity Recommendations Activity Limitations: per Instructions/Follow-up section Shower/Bathe: tomorrow 1. Do not lift >15lbs x 6 weeks. 2. No heavy exercise x 6 weeks. You may engage in light activity such as walking and stairs as tolerated. 3. Do not drive x [address] while taking narcotics. 4. Follow-up as scheduled. Please call our office at [phone] if you need to reschedule for any reason. . . Current Hospital Diet Patient's current hospital diet: Regular Diet Discharge Diet Recommended Diet: Regular Diet Procedures Procedures Performed: Right Laparosopic Dismembered Pyeloplasty with Right Ureteral Antegrade Stent Insertion, and Right Laparoscopic Nephropexy, Da Raven Robotic Assistance Pending Studies Studies pending at discharge: yes List of pending studies: portion of right ureter pathology Medical Emergencies . Who to Call and When: Medical Emergencies: If at any time you feel your situation is an emergency, please call 911 immediately. . Non-Emergent Contact Non-Emergency issues call your: Urologist Call Non-Emergent contact if: temperature is above 101.5, your pain is not controlled, your pain is worsening, your pain is unusual for you, your pain is concerning you, wound has increased drainage, wound has increased redness, wound has increased pain, you have any medication questions . . "Provider Documentation" section prepared by Odessa Winkler. . VTE Core Measure Inpt VTE Proph given/why not?: Unfractionated heparin SQ, SCD's [place] Drug Monitoring Program Search Results: patient reviewed within database, no issues identified
[2017-04-17] MEDS ORDERED: TRIAMCINOLONE ACET 0.1% OINT 15 GM TUBE TOP SCH (09:00)
[2017-04-17 09:04] LABS: BASO % 0.1 %; BASO ABS # 0.01 K/uL (0-0.2); EOS % 0.1 %; EOS ABS # 0.01 K/uL (0-0.5); HEMATOCRIT 36.4 % (37-47); HEMOGLOBIN 12.1 g/dL (12.0-16.0); IG# 0.03 K/uL (0.00-0.02); LYMPH % 18.8 %; MEAN CELL VOLUME 90.5 fL (80-100); MEAN CORPUSCULAR HEMOGLOBIN 30.1 pg (25-34); MEAN CORPUSCULAR HGB CONC 33.2 g/dl (32-36); MEAN PLATELET VOLUME 9.6 fL (7.4-10.4); MONO % 7.6 %; MONO ABS # 0.73 K/uL (0.11-0.59); NEUT % 73.1 %; NEUT ABS # 7.02 K/uL (1.4-6.5); PLATELET COUNT 184 K/uL (130-400); RED CELL DISTRIBUTION WIDTH CV 13.5 % (11.5-14.5); RED CELL DISTRIBUTION WIDTH SD 44.7 fL (36.4-46.3)
[2017-04-17] MEDS ORDERED: PHEN-876 PO (09:07)
[2017-04-17 09:40] LABS: CALCIUM 8.8 mg/dl (8.5-10.1); CREATININE 1.05 mg/dl (0.60-1.20); POTASSIUM 3.8 mmol/L (3.5-5.1)
[2017-04-17] MEDS: OXYCODONE/ACETAMINOPHEN 7.5-325 TAB PO PRN (10:59)
[2017-04-17 12:25] VITALS: BP 91/52; PULSE 72; TEMP 36.7; O2SAT 95
[2017-04-17 13:33] VITALS: BP 91/52; PULSE 72; TEMP 36.7; O2SAT 95
== END 2017-04-17 14:10 | disposition home or self-care (01) | DRG 660 ==
LOC: C.ACU 05:37 → C.MSW 06:05 → ENRESERV 12:04
PROVIDERS: ADMIT Urology; ATTEND Urology
PROC: 0TQ Urinary System, Repair (ICD-10-PCS; principal; 2017-04-16 07:30)
PROC: 0TQ Urinary System, Repair (ICD-10-PCS; principal; 2017-04-16 07:30)
PROC: 8E0W4CZ Robotic Assisted Procedure of Trunk Region, Percutaneous Endoscopic Approach (ICD-10-PCS; principal; 2017-04-16 07:30)
DX: N13.1 Hydronephrosis with ureteral stricture, not elsewhere classified (principal); E03.9 Hypothyroidism, unspecified; G25.81 Restless legs syndrome; Z85.3 Personal history of malignant neoplasm of breast; Z83.3 Family history of diabetes mellitus; Z82.49 Family history of ischemic heart disease and other diseases of the circulatory system; Z82.0 Family history of epilepsy and other diseases of the nervous system; Z87.891 Personal history of nicotine dependence; Z88.0 Allergy status to penicillin

== ENCOUNTER → 2017-05-11 | Outpatient (CLI) | payer BC, OTHER ==
[~2017-05-11] MED LIST changes: +CLC100 PO; +OPTIRAY 300 IV PRN; +OXYC7.5T62 PO; +PHEN-876 PO
--- NOTE | 2017-05-11 15:04 | DIAGNOSTIC IMAGING REPORT ---
IVP W/OR W/O TOMOGRAMS HISTORY: 61 years-old Female N13.30 right stent placement with right-sided hydronephrosis. COMPARISON: KUB 04/16/2017, CT 12/06/2016 TECHNIQUE: IVP with tomograms was obtained utilizing 100 cc Optiray 300. A total of 12 images were submitted. FINDINGS: Brood Station Manager image demonstrates an unchanged 4 mm calculus of the interpolar left kidney. Right-sided ureteral stent is in place which appears to be in appropriate positioning. No right-sided renal calculi or ureteral calculi that a 5. Multiple calcifications of the pelvis are noted suggesting phleboliths. There is moderate volume of formed stool throughout the colon suggesting constipation. Mild degenerative changes of the lower lumbar spine and hips. Symmetric bilateral renal function. The left renal shadow measures 13.7 cm in length and the right measures 11.6 cm. The left renal pelvis, calyces and ureter appear normal without evidence of dilation or other focal abnormality. The distal third of the left ureter is not opacified and therefore is difficult to evaluate. There is moderate dilation of the central and peripheral calyces and renal pelvis on the right with blunting of the calyces. These findings progress through the study, most apparent on image 11 of 12. There is only minimal amount of contrast noted about the right ureteral stent, best seen on image 12 of 12. Contrast is seen filling the urinary bladder lumen throughout the study. The post void image demonstrates right greater than left contrast within the bilateral collecting systems. Additionally, there is mild opacification of the distal right ureter on the postvoid image with mild post void residual in the urinary bladder lumen.. IMPRESSION: 1. Moderate dilation of the right renal pelvis and calyces with minimal opacification of the right ureter . Right ureteral stent appears in satisfactory positioning. 2. Unchanged 4 mm calculus of the left kidney. 3. Mild post void residual of the urinary bladder. 4. Suggested constipation. The above report was generated using voice recognition software. It may contain grammatical, syntax or spelling errors. Electronically signed by: Dez Napoles M.D. 05/11/2017 3:03 PM Dictated Date/Time: 05/11/2017 2:21 PM
== END | disposition home or self-care (01) ==
LOC: C.RAD 12:58
PROVIDERS: ATTEND Urology
DX: N13.30 Unspecified hydronephrosis (principal)

== ENCOUNTER → 2017-05-20 | Outpatient (CLI) | payer OTHER ==
[~2017-05-20] MED LIST changes: -OPTIRAY 300 IV PRN
== END | disposition home or self-care (01) ==
LOC: C.LABSPEC 11:12
PROVIDERS: ATTEND Urology
DX: N13.5 Crossing vessel and stricture of ureter without hydronephrosis (principal); N39.0 Urinary tract infection, site not specified

== ENCOUNTER → 2017-09-15 | Outpatient (CLI) | payer OTHER ==
--- NOTE | 2017-09-17 07:55 | MAMMOGRAPHY REPORT ---
BILATERAL DIGITAL SCREENING MAMMOGRAM TOMOSYNTHESIS WITH CAD: 09/15/2017 CLINICAL HISTORY: Routine screening. Patient has no complaints. TECHNIQUE: The study was acquired using full field digital technology and interpreted from soft copy. Breast tomosynthesis in addition to standard 2D mammography was performed. Current study was also ev aluated with a Computer Aided Detection (CAD) system. COMPARISON: Comparison is made to exams dated: 08/04/2016 mammogram, 07/31/2015 mammogram, 07/26/2014 yung mogram, 06/07/2013 mammogram, 11/29/2012 mammogram, and 05/21/2012 mammogram - [facility]. BREAST COMPOSITION: The tissue of both breasts is heterogeneously dense, which may obscure small mass es. FINDINGS: There has been involutional changes comparing to more remote prior mammograms from 2007, 12 11 and 2009. There are decreasing masses bilaterally as well. Expected architectural distortion in the upper inner posterior right breast, at the site of prior lumpectomy. A linear scar marker is als o seen overlying the upper inner right breast. There is a decreasing asymmetry in the retroareolar r ight breast on the CC view, most likely representing a decreasing/fluctuating cyst. There are diffus e bilateral punctate microcalcifications and mild vascular calcifications bilaterally. No suspicious mass, architectural distortion or new cluster of microcalcifications is seen. IMPRESSION: ACR BI-RADS CATEGORY 1: NEGATIVE There is no mammographic evidence of malignancy. A 1 year screening mammogram is recommended.( [id number]) The patient will receive written notification of the results. Some breast cancers are not detected with mammography. A negative mammographic report should not danuta y biopsy if a clinically suggestive mass is present. Fabienne Prescott M.D. ay/:09/15/2017 20:56:23 Machine Repairer: RT Ce(R)(M)(BD), [facility] letter sent: Normal 1/2 BI-RADS Code: ACR BI-RADS Category 1: Negative
== END | disposition home or self-care (01) ==
LOC: C.MAMM 15:34
PROVIDERS: ATTEND Nurse Practitioner Family
DX: Z12.31 Encounter for screening mammogram for malignant neoplasm of breast (principal); Z85.3 Personal history of malignant neoplasm of breast